=== PATIENT | male | born 1950 | race Caucasian/White ===

== ENCOUNTER 2017-08-16 09:51 | Outpatient (CLI) | payer MEDICARE ==
[~2017-08-16] VITALS: Ht 175.3 cm; Wt 99.8 kg
[2017-08-16 10:18] VITALS: BP 135/61
[2017-08-16 11:04] LABS: BASOPHILS % (AUTO) 0 % (0-10); EOSINOPHILS # (AUTO) 0.1 10^3/uL (0.0-0.3); EOSINOPHILS % (AUTO) 2 % (0-10); HEMATOCRIT 35 % (40-54); HEMOGLOBIN 11.8 G/DL (13.3-17.7); LYMPHOCYTES # (AUTO) 1.7 X 10^3 (1.0-4.0); LYMPHOCYTES % (AUTO) 28 % (12-44); MEAN CORPUSCULAR HEMOGLOBIN 34 PG (25-34); MEAN CORPUSCULAR HGB CONC 34 G/DL (32-36); MEAN CORPUSCULAR VOLUME 102 FL (80-99); MEAN PLATELET VOLUME 11.4 FL (7.4-10.4); MONOCYTES # (AUTO) 0.6 X 10^3 (0.0-1.0); MONOCYTES % (AUTO) 10 % (0-12); NEUTROPHILS # (AUTO) 3.5 X 10^3 (1.8-7.8); NEUTROPHILS % (AUTO) 59 % (42-75); PLATELET COUNT 172 10^3/uL (130-400); RED BLOOD COUNT 3.45 10^6/uL (4.35-5.85); WHITE BLOOD COUNT 5.9 10^3/uL (4.3-11.0)
[2017-08-16] MEDS ORDERED: OMEG-160 PO (11:04)
[2017-08-16] MEDS ORDERED: ATOR80TA76 PO (11:04)
[2017-08-16] MEDS ORDERED: FERR324T4 PO (11:04)
[2017-08-16] MEDS ORDERED: DOXA8TAB73 PO (11:04)
[2017-08-16] MEDS ORDERED: APIX5TAB PO (11:04)
[2017-08-16] MEDS ORDERED: CARV6.25 PO (11:04)
[2017-08-16] MEDS ORDERED: SPIR50TA2 PO (11:04)
[2017-08-16] MEDS ORDERED: INSU100V5 SQ (11:04)
[2017-08-16] MEDS ORDERED: FENO160T12 PO (11:04)
[2017-08-16] MEDS ORDERED: ASPI-586 PO (11:04)
[2017-08-16] MEDS ORDERED: EZET10TA5 PO (11:04)
[2017-08-16] MEDS ORDERED: PANT40TA2 PO (11:04)
[2017-08-16] MEDS ORDERED: NITR0.4T39 SL (11:04)
[2017-08-16] MEDS ORDERED: MULT-1029 PO (11:04)
[2017-08-16] MEDS ORDERED: CHOL20003 PO (11:04)
[2017-08-16] MEDS ORDERED: PAMI30VI8 SQ (11:04)
[2017-08-16] MEDS ORDERED: ISOS120T6 PO (11:04)
[2017-08-16] MEDS ORDERED: FURO-124 PO (11:04)
[2017-08-16 11:18] LABS: CALCIUM 8.6 MG/DL (8.5-10.1); CREATININE SERUM 2.48 MG/DL (0.60-1.30); POTASSIUM 4.5 MMOL/L (3.6-5.0)
== END 2017-08-16 12:18 | disposition home or self-care (01) ==
LOC: PREOP 09:51
PROVIDERS: ATTEND Orthopaedic Surgery Orthopaedic Surgery of the Spine
DX: Z01.812 Encounter for preprocedural laboratory examination (principal); Z11.2 Encounter for screening for other bacterial diseases; M48.061 Spinal stenosis, lumbar region without neurogenic claudication
CPT/HCPCS: 36415; 80048; 85025; 86850; 86900; 86901; 87081; 93005

== ENCOUNTER 2017-08-28 10:52 | Inpatient (IN) | payer MEDICARE ==
[~2017-08-28] VITALS: Ht 175.3 cm; Wt 98.6 kg
[~2017-08-28 10:52] MED LIST: APIX5TAB PO; ASPI-586 PO; ATOR80TA76 PO; CARV6.25 PO; CHOL20003 PO; DOXA8TAB73 PO; EZET10TA5 PO; FENO160T12 PO; FERR324T4 PO; FURO-124 PO; INSU100V5 SQ; ISOS120T6 PO; MULT-1029 PO; NITR0.4T39 SL; OMEG-160 PO; PAMI30VI8 SQ; PANT40TA2 PO; SPIR50TA4 PO
[2017-08-28 12:40] VITALS: BP 147/76
--- NOTE | 2017-08-28 13:32 | Physical Therapy Evaluation ---
PT Evaluation-General Medical Diagnosis Admission Date 08/28/17 Medical Diagnosis: lumbar stenosis with claudication Onset Date: Aug 28, 2017 Therapy Diagnosis Therapy Diagnosis: weakness; abn gait Height/Weight Height (Feet): 5 Height (Inches): 9.00 Weight (Pounds): 217 Weight (Ounces): 5.0 Precautions Precautions/Isolations: Standard Precautions Back brace on when up. Referral Physician: Ramiro Reason for Referral: Evaluation/Treatment Medical History Pertinent Medical History: Atrial Fib, Arthritis, CABG, CVA (with L sided weakness), DM, GERD, HTN, Renal Insufficiency Additional Medical History chronic back pain Current History Elective back surgery L3-5 TLIF, PSDF Reviewed History: Yes Social History Home: Single Level Current Living Status: Spouse Entry Into Home: Stairs With Railing PT Steps Inside Home: 0 Prior/Core FIM Prior Level of Function Functional [place] Measure 0=Not Assessed/NA 4=Minimal Assistance 1=Total Assistance 5=Supervision or Setup 2=Maximal Assistance 6=Modified [place] 3=Moderate Assistance 7=Complete [place] Bed Mobility: 7 Transfers (B,C,W/C) (FIM): 7 Gait: 7 Indep with mobility and self care. Community ambulator PT Evaluation-Current Subjective Agreeable to PT. No particular complaints. Pain Numeric Pain Scale: 3 Location: Posterior Location Body Site: Back (surgical site) Pain Description: Ache Pt/Family Goals Return home with his when able. Objective Patient Orientation: Person, Place, Time, Situation Problem Solving: Good ROM/Strength ROM Lower Extremities WFL Strenght Lower Extremities grossly 4-/5 throughout Integumentary/Posture Integumentary Refer to nursing notes. Bowel Incontinence: No Bladder Incontinence: No Posture normal and symmetrical Neuromuscular (Tone, Coordination, Reflexes) Functional and intact Sensory Vision: Functional Hearing: Functional Hand Dominance: Right Sensation Right Lower Extremit: Intact Sensation Left Lower Extremity: Intact Transfers Functional [place] Measure 0=Not Assessed/NA 4=Minimal Assistance 1=Total Assistance 5=Supervision or Setup 2=Maximal Assistance 6=Modified [place] 3=Moderate Assistance 7=Complete IndependenceIRFPAI Quality Coding Scale 6 Independent with activity with or without an assistive device 5 Patient requires set up or clean up by helper. Patient completes activity by themselves 4 Supervision or touching assist (CGA). [place] provide cues , steadying assist 3 The helper provides less than half the effort to complete the activity 2 The helper provides more than half the effort to complete the activity 1 Dependent. The helper does all the effort to complete an activity 7 Patient refused to complete or attempt activity 9 The patient did not perform the activity before the current illness or injury 88 Not attempted due to Medical conditions or safety concerns Transfers (B, C, W/C) (FIM): 3 Roll Left to Right (QC): 4 Supine to/from Sit: 3 (mod assist to lift his trunk; he used bedrail and HOB slightly elevated. ) Sit to/from Stand: 4 (CGa for safety with cues for hand placement) Sit to Lying (QC): 3 Lying to Sitting/Side of Bed(Q: 3 Sit to Stand (QC): 4 Chair/Ngw-yf-Qoqlk Xfer(QC): 4 Car Transfer (QC): 4 Gait Does the Patient Walk?: Yes Mode of Locomotion: Walk Anticipated Mode of Locomotion: Walk Gait (FIM): 2 Distance (FIM): 0=133-73 ft Walk 10 feet (QC): 4 Walk 50 ft with 2 Turns(QC): 4 Walk 150 ft (QC): 88 Walking 10ft/uneven surface-QC: 4 Distance: 100 ft x 2 Gait Level of Assist: 4 (CGA for safety) Gait Assistive Device: FWW Comments/Gait Description Initially, pt walks with short choppy steps but as he gets going his stride normalizes. His speed is slow but steady and not noted LOB episodes. Wheelchair Training Does the Pt Use a Wheelchair?: No Stairs Stairs (FIM): 2 #of Steps: 1 Level of Assist: 4 1 Step (curb) (QC): 4 4 Steps (QC): 88 Assistive Device: Walker 12 Steps (QC): 88 Balance Sitting Static: Good Sitting Dynamic: Good Standing Static: Fair Standing Dynamic: Fair Picking up an Object (QC): 88 (not indicated due to recent back surgery) Assessment/Needs Post back surgery with fusion. He has limited functional mobility and this time and has difficulty with transfers and gait. He will benefit from skilled PT to address his functional strength to progress his ability to transfer and ambulate at a mod indep level. He has limited functional activity tolerance as well. He is a good candidate for short term aggressive therapy to allow him to return home as before with his . Rehab Potential: Good PT Short Term Goals Short Term Goals Time Frame: Sep 01, 2017 Transfers (B,C,W/C) (FIM): 5 Gait (FIM): 5 PT Senior Care Goals Hotel Maintenance Technician Goals PT Hotel Maintenance Technician Goals Time Frame: Sep 06, 2017 Transfers (B,C,W/C) (FIM): 6 Sit to Lying (QC): 6 Lying-Sitting on Side/Bed(QC): 6 Sit to Stand (QC): 6 Roll Left to Right (QC): 6 Chair/Qmf-ru-Rmlbs Xfer(QC): 6 Car Transfer (QC): 6 Does the Patient Walk: Yes Gait (FIM): 6 Gait distance (FIM): 3=150 ft Walk 10 feet (QC): 6 Walk 10ft-Uneven Surface(QC): 6 Walk 50ft with 2 Turns (QC): 6 Walk 150 ft (QC): 6 Gait Assistive Device: FWW Does the Pt use WC or Scooter?: No Stairs (FIM): 5 # of Steps: 4 1 Step (curb) (QC): 6 4 Steps (QC): 6 12 Steps (QC): 88 Picking up an Object (QC): 88 All goals are set to allow pt to return home and care for himself at a mod indep level. PT Plan Problem List Problem List: Activity Tolerance, Functional Strength, Safety, Balance, Gait, Transfer, Bed Mobility Treatment/Plan Treatment Plan: Continue Plan of Care Treatment Plan: Bed Mobility, Education, Functional Activity Narciso, Functional Strength, Group Therapy, Gait, Safety, Therapeutic Exercise, Transfers Treatment Duration: Sep 06, 2017 Frequency: At least 5 of 7 days/Wk (IRF) Estimated Hrs Per Day: 1.5 hours per day Patient and/or Family Agrees t: Yes Safety Risks/Education Patient Education: Gait Training, Transfer Techniques, Safety Issues Teaching Recipient: Patient Teaching Methods: Discussion Response to Teaching: Reinforcement Needed Time/GCodes Time In: 1215 Time Out: 1235 Total Billed Treatment Time: 20 Total Billed Treatment visit EVM 20 BRAYAN STAFFORD PT Aug 28, 2017 13:32
--- NOTE | 2017-08-28 13:59 | Occupational Therapy Eval ---
OT Evaluation-General/PLF Medical Diagnosis Admission Date Medical Diagnosis: lumbar stenosis with claudication Onset Date: Aug 28, 2017 Therapy Diagnosis Therapy Diagnosis: decr self care, weakness, decr funct mobility, decr act betty Height/Weight Height (Feet): 5 Height (Inches): 9.00 Weight (Pounds): 217 Weight (Ounces): 5.0 Precautions Precautions/Isolations: Standard Precautions Weight Bear Status TLSO when up Referral Physician: Ramiro Referral Reason: Evaluation/Treatment Medical History Pertinent Medical History: Atrial Fib, Arthritis, CABG, CAD, COPD, CVA (with L sided weakness, 11 years ago), DM, GERD, HTN, Renal Insufficiency Additional Medical History Anemia. Sleep apnea with CPAP. GI bleed. Chronic back pain Current History L3-5 TLIF/PSF, with TLSO Reviewed History: Yes Social History Home: Single Level Current Living Status: Spouse Entry Into Home: Stairs With Railing Steps Into Home: 3 Steps Inside Home: 0 ADL-Prior Level of Function ADL PLOF Comments Pt reported that he has been able to manage his basic self care needs prior to surgery. 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 Pain reported but not rated or described. Appearance Alert, cooperative Mental Status/Objective Patient Orientation: Person, Place, Time, Situation Attachments: IV, Telemetry, Other-See Comments (TLSO) Current Glasses/Contacts: Yes Hearing Aids: No Dentures/Partials: No Hand Dominance: Right Upper Extremity ROM Grossly WFL bilat except decreased supination and wrist extension L UE (from old CVA) Upper Extremity Coordination L UE Upper Extremity Sensation L UE tingly Upper Extremity Strength R UE 4/5, L UE 4-/5 ADL-Treatment ADL-Current Pt reported that he had already had a shower this morning. Functional [place] Measure 0=Not Assessed/NA 4=Minimal Assistance 1=Total Assistance 5=Supervision or Setup 2=Maximal Assistance 6=Modified [place] 3=Moderate Assistance 7=Complete IndependenceIRFPAI Quality Coding Scale 6 Independent with activity with or without an assistive device 5 Patient requires set up or clean up by helper. Patient completes activity by themselves 4 Supervision or touching assist (CGA). [place] provide cues , steadying assist 3 The helper provides less than half the effort to complete the activity 2 The helper provides more than half the effort to complete the activity 1 Dependent. The helper does all the effort to complete an activity 7 Patient refused to complete or attempt activity 9 The patient did not perform the activity before the current illness or injury 88 Not attempted due to Medical conditions or safety concerns Eating (FIM): 5 (setup) Eating (QC): 5 Upper Body Dressing (FIM): 5 (Unable to don TLSO himself. Does not do buttons) Upper Body Dressing (QC): 5 Lower Body Dressing (FIM): 3 (Help to get pants on over feet but he can pull them up. Unable to do slipper socks. CGA when standing to pull pants up. Pt educ modified techniques) Lower Body Dressing (QC): 3 On/Off Footwear (QC): 1 Education OT Patient Education: Modified ADL techniques, Purpose of tx/functional activities, Rehab process, Transfer techniques Teaching Recipient: Patient, Family Teaching Methods: Demonstration, Discussion Response to Teaching: Verbalize Understanding, Return Demonstration OT Short Term Goals Short Term Goals Time Frame: Sep 04, 2017 Lower Body Dressing(FIM): 5 Toilet/Commode Transfer(FIM): 5 Additional Short Term Goals: 1-Demonstrate ADL Tasks, 2-Verbalize Understanding , 3-ImproveStrength/Narciso 1=Demonstrate adherence to instructed precautions during ADL tasks. 2=Patient will verbalize/demonstrate understanding of assistive devices/ modifications for ADL. 3=Patient will improve strength/tolerance for activity to enable patient to perform ADL's. OT Aba Tutor Goals Aba Tutor Goals Time Frame: Sep 08, 2017 Eating (FIM): 7 Eating (QC): 6 Groomin Oral Hygiene (QC): 6 Bathing(FIM): 6 Shower/Bathe Self (QC): 6 Upper Body Dressing(FIM): 6 Upper Body Dressing (QC): 6 Lower Body Dressing(FIM): 6 Lower Body Dressing (QC): 6 On/Off Footwear (QC): 6 Toileting(FIM): 6 Toileting Hygiene (QC): 6 Toilet/Commode Transfer(FIM): 6 Toilet/Commode Transfer (QC): 6 Shower Transfer(FIM): 6 Additional Goals: 1-Demonstrate ADL Tasks, 2-Verbalize Understanding, 3- ImproveStrength/Narciso 1=Demonstrate adherence to instructed precautions during ADL tasks. 2=Patient will verbalize/demonstrate understanding of assistive devices/ modifications for ADL. 3=Patient will improve strength/tolerance for activity to enable patient to perform ADL's. OT Education/Plan Problem List/Assessment Assessment: 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 ) Pt would benefit from skilled OT to increase his independence in basic self care to allow him to safely return home with family Discharge Recommendations Plan/Recommendations: Continue POC Treatment Plan/Plan of Care Treatment,Training & Education: Yes Patient would benefit from OT for education, treatment and training to promote independence in ADL's, mobility, safety and/or upper extremity function for ADL' s. Plan of Care: ADL Retraining, Functional Mobility, Group Exercise/Act as Ind ( education, exercise, funct activity, activity tolerance, socialization), UE Funct Exercise/Act, UE Neuromus Re-Ed/Coord Treatment Duration: Sep 08, 2017 Frequency: At least 5 of 7 days/Wk (IRF) Estimated Hrs Per Day: 1.5 hours per day Agreement: Yes Rehab Potential: Good Time/GCodes Start Time: 12:35 Stop Time: 13:00 Total Time Billed (hr/min): 25 Billed Treatment Time visit, 15 minutes evaluation moderate intensity, 10 minutes ADL GRANT FARIAS OT Aug 28, 2017 13:59
[2017-08-28] MEDS ORDERED: BACLOFEN 10 MG (LIORESAL) TAB PO PRN (14:30)
[2017-08-28] MEDS ORDERED: morphine INJ 10 MG/ML 1ML (SYR OR VIAL) IVP PRN (14:30)
[2017-08-28] MEDS ORDERED: HYDROcodone/APAP 5 MG/325 MG (LORTAB) TAB PO PRN (14:30)
[2017-08-28] MEDS ORDERED: BISACODYL 5 MG (DULCOLAX) TABLET PO PRN (14:30)
[2017-08-28] MEDS ORDERED: ACETAMINOPHEN 325 MG TABLET PO PRN (14:30)
[2017-08-28] MEDS ORDERED: ONDANSETRON 4 MG/2 ML (SDV) Z0FRAN IV PRN (14:30)
[2017-08-28] MEDS ORDERED: LACTATED RINGERS 1,000 ML IV SCH (14:30)
[2017-08-28] MEDS ORDERED: NITROGLYCERIN 2% OINT 1 GM UNIT DOSE PACKET TOP PRN (14:30)
[2017-08-28] MEDS ORDERED: NITROGLYCERIN 0.4 MG SL TABS BTL 25'S SL PRN (14:30)
[2017-08-28] MEDS ORDERED: APIX5TAB PO (14:32)
--- NOTE | 2017-08-28 14:46 | Physical Therapy Daily Note ---
PT Daily Note-Current Subjective AGreeable to PT. Transfers Functional [place] Measure 0=Not Assessed/NA 4=Minimal Assistance 1=Total Assistance 5=Supervision or Setup 2=Maximal Assistance 6=Modified [place] 3=Moderate Assistance 7=Complete IndependenceIRFPAI Quality Coding Scale 6 Independent with activity with or without an assistive device 5 Patient requires set up or clean up by helper. Patient completes activity by themselves 4 Supervision or touching assist (CGA). [place] provide cues , steadying assist 3 The helper provides less than half the effort to complete the activity 2 The helper provides more than half the effort to complete the activity 1 Dependent. The helper does all the effort to complete an activity 7 Patient refused to complete or attempt activity 9 The patient did not perform the activity before the current illness or injury 88 Not attempted due to Medical conditions or safety concerns Car Transfer (QC): 4 Weight Bearing Right Lower Extremity: Right Weight Bearing/Tolerated Left Lower Extremity: Left Weight Bearing/Tolerated Treatments Pt practiced car transfer; required min assist with skilled cues to complete. Gait x 50 ft and 125 ft with FWW with CGA for safety with skilled cues for safety and sequencing. Pt transferred on to the toilet with CGA and did require assist to pull his pants down. Pt on toilet with call light in reach post treatment. Assessment Current Status: Good Progress Gait is improving with repetition. PT Short Term Goals Short Term Goals Time Frame: Sep 01, 2017 Gait (FIM): 5 PT Supervisor Metal Furniture Fabrication Goals Nursing Home Goals PT Supervisor Metal Furniture Fabrication Goals Time Frame: Sep 06, 2017 Transfers (B,C,W/C) (FIM): 6 Sit to Lying (QC): 6 Lying-Sitting on Side/Bed(QC): 6 Sit to Stand (QC): 6 Roll Left to Right (QC): 6 Chair/Wcr-rm-Jebys Xfer(QC): 6 Car Transfer (QC): 6 Does the Patient Walk: Yes Gait (FIM): 6 Gait distance (FIM): 3=150 ft Walk 10 feet (QC): 6 Walk 10ft-Uneven Surface(QC): 6 Walk 50ft with 2 Turns (QC): 6 Walk 150 ft (QC): 6 Gait Assistive Device: FWW Does the Pt use WC or Scooter?: No Stairs (FIM): 5 # of Steps: 4 1 Step (curb) (QC): 6 4 Steps (QC): 6 12 Steps (QC): 88 Picking up an Object (QC): 88 PT Plan Problem List Problem List: Activity Tolerance, Functional Strength, Safety Treatment/Plan Treatment Plan: Continue Plan of Care Treatment Plan: Bed Mobility, Education, Functional Activity Narciso, Functional Strength, Group Therapy, Gait, Safety, Therapeutic Exercise, Transfers Treatment Duration: Sep 06, 2017 Frequency: At least 5 of 7 days/Wk (IRF) Estimated Hrs Per Day: 1.5 hours per day Patient and/or Family Agrees t: Yes Safety Risks/Education Patient Education: Transfer Techniques Teaching Recipient: Patient Teaching Methods: Demonstration, Discussion Response to Teaching: Reinforcement Needed Time/GCodes Time In: 1405 Time Out: 1415 Total Billed Treatment Time: 10 Total Billed Treatment visit GT 10 BRAYAN STAFFORD PT Aug 28, 2017 14:46
--- NOTE | 2017-08-28 14:55 | Therapy Group Daily Note ---
Therapy Daily Group Note Patient Education Topic Other List Below (orientation to rehab practices and expectations, importance of activity and exercise) Exercises LE Seated Exercise, UE Exercise Other/Notes Pt. participated in group PT OT session this date. Pt ambulated with FWW and assist to group. Pt. was pleasant , made conversation and participated in exercises etc. Pt. with therapist after group for further therapies. Start Time: 13:00 Stop Time: 14:05 Total Billed Treatment Time: 65 Total Billed Treatment 1,GRP [facility] INSTITUTIONAL RESEARCH COORDINATOR Aug 28, 2017 14:55
--- NOTE | 2017-08-28 15:09 | ST Cognitive Linguistic Eval ---
Speech Evaluation-General Medical Diagnosis lumbar stenosis with claudication Onset Date: Aug 28, 2017 Therapy Diagnosis Therapy Diagnosis: Cognitive Linguistic Skills WNL Precautions Precautions/Isolations: Standard Precautions Referral Referring Physician: Dr. Marco A Rubio Reason for Referral: Evaluation/Treatment Cognitive Evaluation Medical History Pertinent Medical History: Atrial Fib, Arthritis, CABG, CAD, COPD, CVA (with L sided weakness, 11 years ago), DM, GERD, HTN, Renal Insufficiency Reviewed History: Yes Social History Current Living Status: Spouse Speech PLF-Current Status Prior Level of Function The patient denied prior challenges with speech, language, or cognition. Subjective The patient was seated upright in bed upon entrance. The patient greeted the clinician and was agreeable to participation in the cognitive evaluation. Language Eval: Auditory Comprehends Simple Yes/No Ques: Functional Indent/Objects [place]: Functional Ident/Pics in [place]: Functional Follows 1-Step Commands: Functional Follows Complex Directions: Functional Follows General Conversations: Functional Language Eval: Verbal Language Completes Spontaneous Greeting: Functional Produces Auto, Serial Info: Functional Imitates Simple Words/Phrases: Functional Word Finding: Functional Requests Basic Needs: Functional States Basic Personal Info: Functional Expresses Complex Ideas: Functional Cognitive Patient Orientation The patient was independently oriented to self, location, month, day of week, and year. Objective Cognitive Domain Attention: WNL Memory: WNL Problem Solving: Functional Objective Impression The patient demonstrated cognitive linguistic skills within normal limits. Communication/Social Cognition Comprehension: 7 Expression: 7 Social Interaction: 6 Problem Solvin Memory: 7 Speech Patient Assess Expression of Ideas/Wants: Expression (4) Understanding Verbal Content: Understands (4) Brief Interview-Mental Status: Yes Repetition of Three Words: Three (3) Temporal Orientation: Year: Correct (3) Temporal Orientation: Month: Accurate within 5 days(2) Temporal Orientation: Day: Correct (1) Recall : Wear to say "Sock": No, could not recall (0) Recall : Color: Yes, no cue required (2) Recall : Bed: Yes, no cue required (2) Speech-Plan Treatment Plan Speech Therapy Treatment Plan: Discontinue ST No ST warranted. Frequency: Modified Program (IRF) (No ST warranted.) Estimated Hrs Per Day: Other (No ST warranted.) Rehab Potential: Good Safety Risks/Education Teaching Recipient: Patient Teaching Methods: Discussion Response to Teaching: Verbalize Understanding Education Topics Provided: Results, Recommendations, Plan of Care Time Speech Therapy Time In: 14:25 Speech Therapy Time Out: 14:40 Total Billed Time: 15 Billed Treatment Time 1, ANN MARIE CHANG Aug 28, 2017 15:09
--- NOTE | 2017-08-28 15:20 | Occupational Ther Daily Note ---
OT Current Status-Daily Note Subjective Pt seen in room, up in bed, agreeable to OT. No pain mentioned. Appearance Alert, cooperative Mental Status/Objective Functional [place] Measure 0=Not Assessed/NA 4=Minimal Assistance 1=Total Assistance 5=Supervision or Setup 2=Maximal Assistance 6=Modified [place] 3=Moderate Assistance 7=Complete [place] ADL-Treatment Pt was able to get up out of bed log rolling with min assistance to push up. TLSO applied. Pt sit to stand with CGA, cues for hand placement. Pt starter to walk to the gym and realized he had been incontinent of urine ([place] removed this morning). He walked about 100' with CGA and FWW and circled back to his room. He got on and off tall toilet with CGA, cues to use grab bar on his R side. He needed a little help to change pants and get them on/off L hip but was able to wipe himself. He stopped at the sink to wash his hands with CGA, FWW and walked back to bed CGA. FWW. He needed mod assist to get legs into bed and help to take brace off. pt left up in bed, all needs met. Functional [place] Measure 0=Not Assessed/NA 4=Minimal Assistance 1=Total Assistance 5=Supervision or Setup 2=Maximal Assistance 6=Modified [place] 3=Moderate Assistance 7=Complete IndependenceIRFPAI Quality Coding Scale 6 Independent with activity with or without an assistive device 5 Patient requires set up or clean up by helper. Patient completes activity by themselves 4 Supervision or touching assist (CGA). [place] provide cues , steadying assist 3 The helper provides less than half the effort to complete the activity 2 The helper provides more than half the effort to complete the activity 1 Dependent. The helper does all the effort to complete an activity 7 Patient refused to complete or attempt activity 9 The patient did not perform the activity before the current illness or injury 88 Not attempted due to Medical conditions or safety concerns Grooming (FIM): 4 (CGA, FWW at sink to wash hands) Oral Hygiene (QC): 4 Toileting (FIM): 2 (Help to get pants up and down over L hip but able to wipe. Residual from old CVA with L UE weakness. Tall toilet, grab bar on R, FWW) Toileting Hygiene (QC): 2 Toilet/Commode Transfer (FIM): 4 (CGA getting on and off tall toilet, grab bar on R, FWW) Toilet Transfer (QC): 4 Education OT Patient Education: Modified ADL techniques, Progress toward Goal/Update tx plan, Purpose of tx/functional activities, Transfer techniques Teaching Recipient: Patient Teaching Methods: Demonstration, Discussion Response to Teaching: Verbalize Understanding, Return Demonstration, Reinforcement Needed OT Short Term Goals Short Term Goals Time Frame: Sep 04, 2017 Lower Body Dressing(FIM): 5 Toilet/Commode Transfer(FIM): 5 Additional Short Term Goals: 1-Demonstrate ADL Tasks, 2-Verbalize Understanding , 3-ImproveStrength/Narciso 1=Demonstrate adherence to instructed precautions during ADL tasks. 2=Patient will verbalize/demonstrate understanding of assistive devices/ modifications for ADL. 3=Patient will improve strength/tolerance for activity to enable patient to perform ADL's. OT Distributed Energy Systems Consultant Goals Distributed Energy Systems Consultant Goals Time Frame: Sep 08, 2017 Eating (FIM): 7 Eating (QC): 6 Groomin Oral Hygiene (QC): 6 Bathing(FIM): 6 Shower/Bathe Self (QC): 6 Upper Body Dressing(FIM): 6 Upper Body Dressing (QC): 6 Lower Body Dressing(FIM): 6 Lower Body Dressing (QC): 6 On/Off Footwear (QC): 6 Toileting(FIM): 6 Toileting Hygiene (QC): 6 Toilet/Commode Transfer(FIM): 6 Toilet/Commode Transfer (QC): 6 Shower Transfer(FIM): 6 Additional Goals: 1-Demonstrate ADL Tasks, 2-Verbalize Understanding, 3- ImproveStrength/Narciso 1=Demonstrate adherence to instructed precautions during ADL tasks. 2=Patient will verbalize/demonstrate understanding of assistive devices/ modifications for ADL. 3=Patient will improve strength/tolerance for activity to enable patient to perform ADL's. OT Education/Plan Problem List/Assessment Pt would benefit from skilled OT to increase his independence in basic self care to allow him to safely return home with family Discharge Recommendations Plan/Recommendations: Continue POC Treatment Plan/Plan of Care Patient would benefit from OT for education, treatment and training to promote independence in ADL's, mobility, safety and/or upper extremity function for ADL' s. Plan of Care: ADL Retraining, Functional Mobility, Group Exercise/Act as Ind ( education, exercise, funct activity, activity tolerance, socialization), UE Funct Exercise/Act, UE Neuromus Re-Ed/Coord Treatment Duration: Sep 08, 2017 Frequency: At least 5 of 7 days/Wk (IRF) Estimated Hrs Per Day: 1.5 hours per day Agreement: Yes Rehab Potential: Good Time/GCodes Start Time: 14:40 Stop Time: 15:10 Total Time Billed (hr/min): 30 Billed Treatment Time visit, 30 minutes ADL GRANT FARIAS OT Aug 28, 2017 15:20
[2017-08-28] MEDS ORDERED: RT-ALBUTEROL SULF 2.5 MG/3 ML PRE-MIX VIAL ONE (15:37)
--- NOTE | 2017-08-28 15:38 | Physical Therapy Daily Note ---
PT Daily Note-Current Subjective Agrees to Rx. Prefers to stay in bed for exercises. Fatigued Pain Numeric Pain Scale: 5-Moderate Pain Location: Medial Location Body Site: Back Pain Description: Ache Mental Status Patient Orientation: Normal For Age Attachments: IV Transfers Functional [place] Measure 0=Not Assessed/NA 4=Minimal Assistance 1=Total Assistance 5=Supervision or Setup 2=Maximal Assistance 6=Modified [place] 3=Moderate Assistance 7=Complete IndependenceIRFPAI Quality Coding Scale 6 Independent with activity with or without an assistive device 5 Patient requires set up or clean up by helper. Patient completes activity by themselves 4 Supervision or touching assist (CGA). [place] provide cues , steadying assist 3 The helper provides less than half the effort to complete the activity 2 The helper provides more than half the effort to complete the activity 1 Dependent. The helper does all the effort to complete an activity 7 Patient refused to complete or attempt activity 9 The patient did not perform the activity before the current illness or injury 88 Not attempted due to Medical conditions or safety concerns practiced pushing self up in bed, required min assist Weight Bearing Right Lower Extremity: Right Weight Bearing/Tolerated Left Lower Extremity: Left Weight Bearing/Tolerated Exercises Supine Ex: Ankle pumps, Quad Set, Rolling, Glut sets, Heel Slides, Short Arc Quads, Scooting, Hip abd/add Supine Reps: 10 (x2) Assessment Current Status: Good Progress PT Short Term Goals Short Term Goals Time Frame: Sep 01, 2017 Gait (FIM): 5 PT Retirement Goals Retirement Goals PT Retirement Goals Time Frame: Sep 06, 2017 Transfers (B,C,W/C) (FIM): 6 Sit to Lying (QC): 6 Lying-Sitting on Side/Bed(QC): 6 Sit to Stand (QC): 6 Roll Left to Right (QC): 6 Chair/[id number]-[id number] Xfer(QC): 6 Car Transfer (QC): 6 Does the Patient Walk: Yes Gait (FIM): 6 Gait distance (FIM): 3=150 ft Walk 10 feet (QC): 6 Walk 10ft-Uneven Surface(QC): 6 Walk 50ft with 2 Turns (QC): 6 Walk 150 ft (QC): 6 Gait Assistive Device: FWW Does the Pt use WC or Scooter?: No Stairs (FIM): 5 # of Steps: 4 1 Step (curb) (QC): 6 4 Steps (QC): 6 12 Steps (QC): 88 Picking up an Object (QC): 88 PT Plan Treatment/Plan Treatment Plan: Continue Plan of Care Treatment Plan: Bed Mobility, Education, Functional Activity Narciso, Functional Strength, Group Therapy, Gait, Safety, Therapeutic Exercise, Transfers Treatment Duration: Sep 06, 2017 Frequency: At least 5 of 7 days/Wk (IRF) Estimated Hrs Per Day: 1.5 hours per day Patient and/or Family Agrees t: Yes Time/GCodes Time In: 1520 Time Out: 1535 Total Billed Treatment Time: 15 Total Billed Treatment 1,EX15m G Codes Necessary: MITCHELL Witt RN ENDOCRINOLOGY Aug 28, 2017 15:38
[2017-08-28] MEDS ORDERED: ARTIFICIAL TEARS OINT (LACRI-LUBE) 3.5 GM TUBE OU SCH (16:00)
[2017-08-28] MEDS: inSUlin ASPART (NovoLOG) 1 UNIT/0.01 ML (CHARGE PER UNIT) SC SCH ×2 (17:16→21:21)
[2017-08-28] MEDS ORDERED: ONDANSETRON 4 MG (ZOFRAN) ORAL DISSOLVE TAB ONE (18:02)
[2017-08-28] MEDS: ONDANSETRON 4 MG (ZOFRAN) ORAL DISSOLVE TAB PO PRN (18:06)
[2017-08-28] MEDS: OMEGA 3 (FISH OIL) 1000 MG CAP PO SCH (18:09)
[2017-08-28 18:15] VITALS: BP 167/75
--- NOTE | 2017-08-28 19:09 | HISTORY AND PHYSICAL ---
DATE OF SERVICE: 08/28/2017 ADMISSION HISTORY AND PHYSICAL CHIEF COMPLAINT: Back pain, difficulty walking. HISTORY OF PRESENT ILLNESS: The patient is a 67-year-old male. DICTATION ENDS HERE Job ID: [id number] DocumentID: [id number] Dictated Date: 08/28/2017 18:47:22 Data Analysis Assistant Date: 08/28/2017 19:09:05 Dictated By: JACQUES GALLO MD
--- NOTE | 2017-08-28 19:42 | HISTORY AND PHYSICAL ---
DATE OF SERVICE: 08/28/2017 ADMISSION HISTORY AND PHYSICAL CHIEF COMPLAINT: Difficulty with walking with associated back pain. HISTORY OF PRESENT ILLNESS: The patient is a 67-year-old male, who is a retired contractor, lives with his in [place], [place], who had progressive back pain associated with lumbar radiculopathy and neurogenic claudication, who is followed on an outpatient basis by Dr. Heredia. After having a conservative treatment with little improvement, he was admitted to [facility] on 08/25/2017, had underwent L3-L4 transforaminal lumbar interbody fusion and posterior spinal fusion, L4-L5 transforaminal lumbar interbody fusion and posterior spinal fusion, L3-L4 and L4-L5 interbody caged instrumentation without interval fixation and L3-L5 posterior segmental pedicle screw instrumentation with autograft for spine surgery, local and Allograft for spine surgery morcellized for treatment of recurrent lumbar stenosis with neural foramen due to disk and osseous structures, neurogenic claudication, lumbar radiculopathy, post-laminectomy syndrome and lumbar degenerative disk disease. Postoperatively, the patient had issues with urinary retention and was followed by Dr. Guallpa and had cystoscopy on 08/28/2017, is now voiding well. He was followed by Dr. Forbes as well for treatment of sepsis with metabolic acidosis, agitation and confusion. All improved. He has CPAP at bedside for his AXEL. He had acute on chronic kidney disease. IV fluids provided with improvement. He had abdominal pain with constipation and is complaining of constipation today. Medications adjusted. The patient was followed by hospitalist service, Dr. Buchanan as well as Dr. Cohn for his coronary artery disease and paroxysmal atrial fibrillation documented on telemetry this hospitalization. Dr. Cohn recommended postop resumption of Eliquis and to consider blood transfusion if H and H drops further. The patient has now been referred to inpatient rehabilitation unit for ongoing therapies prior to discharge home with spouse. He currently requires assistance for his ADLs and mobility skills.He is min assist for transfers and gait with FWW.He is mod assist for Lower body dressing and setup for upper body dressing. PAST MEDICAL HISTORY: AXEL, BPH, chronic anemia probably due to chronic kidney disease, type 2 diabetes mellitus, paroxysmal atrial fibrillation, coronary artery disease with history of CABG in the late at [facility]. He has had cardiac stents in the past as well with Dr. Dos Santos approximately three years ago. PAST SURGICAL HISTORY: As per above. He also has had prior lumbar spine surgery with Dr. Polo at [facility] and prior cervical spine surgery with Dr. Heredia. ALLERGIES: LEVAQUIN. FAMILY HISTORY: Noncontributory. SOCIAL HISTORY: Essentially as per above. REVIEW OF SYSTEMS: Ten point review of systems significant for irregular heartbeat, constipation, back pain. MEDICATIONS: 1. Furosemide 40 mg p.o. daily. 2. Spironolactone 50 mg p.o. daily. 3. Feosol 325 mg p.o. daily. 4. Multivitamins with minerals one tablet p.o. daily. 5. Protonix 40 mg p.o. daily. 6. Vitamin D3 2000 units p.o. daily. 7. Imdur 120 mg p.o. daily. 8. Lipitor 80 mg p.o. at bedtime. 9. Coreg 6.25 mg p.o. b.i.d. 10. Cardura 8 mg p.o. at bedtime. 11. Detemir insulin 30 units subQ b.i.d. 12. Zetia 10 mg p.o. at bedtime. 13. Lofibra 134 mg p.o. at bedtime. 14. Zofran 4 mg p.o. q.6 hours p.r.n. nausea, vomiting. 15. Fish oil 1000 mg p.o. b.i.d. with meals. 16. NovoLog insulin sliding scale regimen A. 17. Proventil respiratory treatments q.6 hours. 18. Nitroglycerin 0.4 mg sublingual p.r.n. chest pain. PHYSICAL EXAMINATION: GENERAL: Significant for a somewhat obese male sitting up at edge of bed with incision site being checked by nursing and in no acute distress. VITAL SIGNS: He is afebrile, pulse is 51, respirations 20, blood pressure 167/75, O2 sat 96% on room air. HEENT: Vision, speech, hearing grossly intact. No oral lesion is noted. NECK: Supple without mass. HEART: Regular rhythm. CHEST: Clear. ABDOMEN: Distended, soft, nontender. Bowel sounds present. EXTREMITIES: Trace edema in both ankles. SKIN: Incision site viewed over the lumbar spine intact. No drainage noted. Steri-Strips in place. MUSCULOSKELETAL: The patient has functional active range of motion in all four extremities. NEUROLOGICAL: Strength is grossly 4-/5 in lower limbs and 4/5 in RU LIMB Left Upper limb 4-/5 as a residual of old stroke. He is reported to be voiding and continent of bowel and bladder but constipated. Sensation is grossly intact to touch. He is right hand dominant. IMPRESSION: 1. Ambulatory dysfunction secondary to recurrent lumbar stenosis with associated neurogenic claudication, lumbar radiculopathy, post-laminectomy syndrome and lumbar degenerative disk disease, status post procedures as outlined above, improving. 2. Obstructive sleep apnea, on CPAP. 3. Postop anemia, on replacement. 4. Type 2 diabetes mellitus, on medication. 5. Postop urinary retention, improved, status post cysto. 6. Paroxysmal atrial fibrillation, controlled with medication. 7. Chronic kidney disease, stage IV. 8. Hyperlipidemia. 9. Coronary artery disease with history of coronary artery bypass graft and stents. 10. Postop constipation PLAN: The patient will have a comprehensive program of inpatient rehabilitation with goal of maximizing level of functional independence prior to discharge home with spouse with home health care. The patient will have PT and OT 90 minutes per day each discipline, 5 days a week for 14 days with the above goals in mind. Please see post-admission physician evaluation, which is a separate document for details of plan of care. Speech therapy to do cognitive assessment and treat as indicated. Rehabilitation nursing to assist with bowel, bladder, skin, wound care, medication administration and pain management. web services manager to assist with discharge planning and community reentry. Follow up with hospitalist service as well as Ortho Spine, Cardiology and Urology as per the schedule. ESTIMATED LENGTH OF STAY: 14 days. PROGNOSIS: Rehab prognosis appears good for goal of discharging home with spouse, modified independent to supervision for ADLs and mobility skills. DIET: Carb consistent. CODE STATUS: Full code. Job ID: [id number] DocumentID: [id number] Dictated Date: 08/28/2017 18:59:47 Dumb Waiter Operator Date: 08/28/2017 19:41:38 Dictated By: JACQUES GALLO MD [facility]
[2017-08-28] MEDS: doxAzosin 4 MG (CARDURA) TAB PO SCH (21:00)
[2017-08-28] MEDS: inSUlin DETERMIR 1 UNIT/0.01 ML (LEVEMIR) CHARGE PER UNIT SQ SCH (21:00)
[2017-08-28] MEDS: ATORVASTATIN 80 MG (LIPITOR) TABLET PO SCH (21:00)
[2017-08-28] MEDS ORDERED: SENNA W/DOCUSATE (SENOKOT S) TABLET PO SCH (21:00)
[2017-08-28] MEDS ORDERED: risperiDONE 0.25 MG (RisperDAL) TAB PO SCH (21:00)
[2017-08-28] MEDS: CARVEDILOL 6.25 MG (COREG) TAB PO SCH (21:00)
[2017-08-28] MEDS: POLYETHYLENE GLYCOL 17 GM (MIRALAX) PACK PO SCH (21:00)
[2017-08-28] MEDS ORDERED: POLYETHYLENE GLYCOL 17 GM (MIRALAX) PACK PO SCH (21:00)
[2017-08-28] MEDS ORDERED: DOCUSATE SODIUM 100 MG (COLACE) CAP PO SCH (21:00)
[2017-08-28] MEDS: eZETimibe 10 MG (ZETIA) TABLET PO SCH (21:00)
[2017-08-28] MEDS: SENNA W/DOCUSATE (SENOKOT S) TABLET PO SCH (21:00)
[2017-08-28] MEDS: FENOFIBRATE 134 MG (LOFIBRA) CAPSULE PO SCH (21:00)
[2017-08-28] MEDS ORDERED: 1/2 NS W/KCL 20 MEQ/L 1,000 ML IV ONE (21:35)
[2017-08-28] MEDS: 1/2 NS W/KCL 20 MEQ/L 1,000 ML IV SCH (22:19)
[2017-08-28] MEDS: RT-ALBUTEROL SULF 2.5 MG/3 ML PRE-MIX VIAL INH SCH (22:56)
[2017-08-29] MEDS: RT-ALBUTEROL SULF 2.5 MG/3 ML PRE-MIX VIAL INH SCH ×4 (01:19→19:00)
[2017-08-29 06:00] VITALS: BP 158/67
[2017-08-29] MEDS: inSUlin ASPART (NovoLOG) 1 UNIT/0.01 ML (CHARGE PER UNIT) SC SCH ×4 (06:44→21:26)
[2017-08-29] MEDS: MULTIVIT W/MINERALS TAB (THERAGRAN M) PO SCH (08:00)
[2017-08-29] MEDS: FERROUS SULF 325 MG (IRON) TAB PO SCH (08:00)
[2017-08-29] MEDS: OMEGA 3 (FISH OIL) 1000 MG CAP PO SCH ×2 (08:00→16:33)
[2017-08-29] MEDS: VITAMIN D3 1,000 UNITS (CHOLECALCIFEROL) TABLET PO SCH (08:00)
[2017-08-29] MEDS: 1/2 NS W/KCL 20 MEQ/L 1,000 ML IV SCH ×2 (08:18→19:34)
[2017-08-29] MEDS: ONDANSETRON 4 MG (ZOFRAN) ORAL DISSOLVE TAB PO PRN ×3 (08:18→21:23)
[2017-08-29] MEDS: inSUlin DETERMIR 1 UNIT/0.01 ML (LEVEMIR) CHARGE PER UNIT SQ SCH ×2 (08:30→21:25)
[2017-08-29] MEDS: SENNA W/DOCUSATE (SENOKOT S) TABLET PO SCH ×2 (09:00→21:24)
[2017-08-29] MEDS ORDERED: ASPIRIN 81 MG CHEW (CHILDREN'S ASA) PO SCH (09:00)
--- NOTE | 2017-08-29 09:24 | Progress Note-Hospitalist ---
Subjective HPI/CC On Admission Date Seen by Provider: Aug 29, 2017 Time Seen by Provider: 09:30 Subjective/Events-last exam Patient overall doing much better Voiding on his own without catheter Appreciate urology management Dr. Rodriguez will stop by and evaluate the ileus since he still feels very bloated Check meds and labs Not eating well so will minimize long-acting insulin for now and maintain sliding scale Will check labs tomorrow Review of Systems General: Fatigue Gastrointestinal: Abdominal Pain Musculoskeletal: back pain Objective Exam Vital Signs Vital Signs Date Time Temp Pulse Resp B/P (MAP) Pulse Ox O2 Delivery O2 Flow Rate FiO2 08/29/17 19:00 94 Room Air 08/29/17 18:00 80 155/67 (96) 08/29/17 16:37 98.0 16 08/29/17 01:22 2.00 Capillary Refill : General Appearance: No Apparent Distress, WD/WN, Chronically ill, Obese Respiratory: Lungs Clear, Normal Breath Sounds Cardiovascular: Regular Rate, Rhythm, No Edema Neurologic/Psychiatric: Alert, Oriented x3, No Motor/Sensory Deficits, Normal Mood/Affect Results/Procedures Lab Patient resulted labs reviewed. Assessment/Plan Assessment and Plan Assess & Plan/Chief Complaint Assessment: Severe debility following lumbar spine surgery due to stenosis Status post urinary retention requiring Swanson catheter administration now discontinued appreciate urology management Postop ileus gradually improving Chronic renal sufficiency usual creatinine is 1.81.9 CAD previous bypass surgery Obstructive sleep apnea Postop anemia Plan: Check labs in a.m. Monitor closely Appreciate urology and general surgery evaluation Continue nebulizer treatments Diagnosis/Problems Diagnosis/Problems (1) STENOSIS Status: Resolved (2) Ileus Status: Acute (3) Urinary retention Status: Resolved (4) Delirium Status: Resolved (5) Volume overload Status: Resolved (6) Corneal abrasion, left Status: Resolved (7) AXEL on CPAP Status: Chronic (8) History of CVA (cerebrovascular accident) Status: Chronic (9) CRI (chronic renal insufficiency) Status: Chronic Qualifiers: Chronic kidney disease stage: stage 3 (moderate) Qualified Codes: N18.3 - Chronic kidney disease, stage 3 (moderate) (10) CAD (coronary artery disease), [place] coronary artery Status: Chronic Qualifiers: [place] vs. 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: with tractor crane operator use Diabetes mellitus complication status: with circulatory complication Diabetes mellitus complication detail: with other circulatory complications Qualified Codes: E11.59 - Type 2 diabetes mellitus with other circulatory complications; Z79.4 - [facility] (current) use of insulin (14) Atrial fibrillation Status: Chronic Qualifiers: Atrial fibrillation type: paroxysmal Qualified Codes: I48.0 - Paroxysmal atrial fibrillation Clinical Quality Measures DVT/VTE Risk/Contraindication: Risk Factor Score Per Nursin RFS Level Per Nursing on Admit: 4+=Very High HECTOR MORAN DO Aug 29, 2017 09:24
[2017-08-29] MEDS ORDERED: ASPIRIN 81 MG CHEW (CHILDREN'S ASA) PO NR (09:30)
[2017-08-29] MEDS ORDERED: ASPIRIN 325 MG (5 GR) TABLET PO ONE (09:30)
[2017-08-29] MEDS: POLYETHYLENE GLYCOL 17 GM (MIRALAX) PACK PO SCH ×2 (10:00→21:25)
[2017-08-29] MEDS ORDERED: PANT40TA3 PO (10:11)
[2017-08-29] MEDS ORDERED: FURO40TA4 PO ×2 (10:11)
[2017-08-29] MEDS ORDERED: ASPI-983 PO (10:11)
[2017-08-29] MEDS ORDERED: EZET10TA27 PO (10:11)
[2017-08-29] MEDS ORDERED: INSU100I23 SC (10:11)
[2017-08-29] MEDS ORDERED: CARV6.252 PO (10:11)
[2017-08-29] MEDS ORDERED: NITR0.4T42 SL (10:11)
[2017-08-29] MEDS: PANTOPRAZOLE 40 MG (PROTONIX) TAB PO SCH (10:23)
[2017-08-29] MEDS: SPIRONOLACTONE 25 MG (ALDACTONE) TAB PO SCH (10:23)
[2017-08-29] MEDS: ISOSORBIDE MONONITRATE 60 MG (IMDUR) TAB PO SCH (10:24)
[2017-08-29] MEDS: FUROSEMIDE 40 MG (LASIX) TAB PO SCH (10:24)
[2017-08-29] MEDS: CARVEDILOL 6.25 MG (COREG) TAB PO SCH ×2 (10:24→21:24)
--- NOTE | 2017-08-29 10:30 | Progress Note-Urology ---
Progress Note-Urology Progress Notes/Assess & Plan Progress/Assessment & Plan VOIDING ON OWN. FEELS EMPTYING WELL. CHECK BLADDER SCAN PVR Final Diagnosis URINE RETENTION YOLETTE CARY MD Aug 29, 2017 10:30 am
--- NOTE | 2017-08-29 10:52 | PM&R Post Admission Assessment ---
Post Admission Physician Asses Date seen by provider: Aug 29, 2017 Time seen by provider: 08:00 Admisison Dx: (1) STENOSIS The preadmission screen agrees with the post admission assessment that the patient is a good candidate for inpatient rehabilitation. The patient will have a comprehensive program of inpatient rehabilitation with a goal of maximizing level of functional independence prior to discharge home with spouse. The patient will have PT/OT ninety minutes per day, each discipline, five days a week for gait, strengthening, conditioning, balance, ADLs, any patient/family/caregiver training as necessary. Speech therapy to do cognitive assessment and treat as indicated. Rehabilitation nursing to assist with bowel, bladder, skin, wound care, medication administration, pain management. Photographic Processor to assist with discharge planning, community reentry. SCD's for DVT prophylaxis. He appears to be well motivated to participate in three hours of therapy a day. He should be able to tolerate three hours of therapy a day from a medical and surgical standpoint. He should benefit from the three hours of therapy a day. He has a reasonable discharge plan, reasonable discharge rehabilitation goals and a supportive family. He has various comorbidities that need to be closely monitored with medications and treatments adjusted on a daily basis as needed. He was having some nausea and abdominal distention ast evening associated with constipation but this has improved with IVFS and a BM These include: Postop constipation and nausea and Ileus AXEL BPH Chronic anemia PAF CAD s/p CABG and stents Prior spine surgery with chronic back pain Barriers to discharge for this patient who had been independent prior to this are for him to be modified independent to supervision for ADLs and mobility skills prior to discharge home with spouse and HHC, so as to lessen the burden of the caregivers. Risks for this patient include: 1. Fall 2. Fracture 3. DVT 4. Pulmonary embolism 5. Wound infection 6. Skin breakdown 7. Contractures 8. Poorly controlled pain 9. Urinary retention 10. UTI 11. Respiratory infection 12. Aspiration 13. Worsening anemia 14. Postop ileus 15. Poorly controlled DM 16. recurrent PAF 17. Obstipation Estimated Length of Stay: 14 days Prognosis: Rehab prognosis appears good for goal of discharge home with spouse modified independent to supervision for ADLs and mobility skills. General: Alert, Oriented X3, Cooperative, No Acute Distress HEENT: Atraumatic, PERRLA, EOMI, Mucous Memb Moist/[place] Neck: Supple, No JVD Lungs: Clear to Auscultation Heart: Regular Rate Abdomen: Normal Bowel Sounds, Soft, No Tenderness, Other (distended) Extremities: No Edema Neuro: Other (Strength 4-/5 lower limbs 4/5 both upper limbs) JACQUES GALLO MD Aug 29, 2017 10:52
--- NOTE | 2017-08-29 10:54 | Occupational Ther Daily Note ---
OT Current Status-Daily Note Subjective Pt seen in room, up in recliner, agreeable to OT. Continues to have abdominal discomfort. Would like to shower Appearance Alert, cooperative Mental Status/Objective Functional [place] Measure 0=Not Assessed/NA 4=Minimal Assistance 1=Total Assistance 5=Supervision or Setup 2=Maximal Assistance 6=Modified [place] 3=Moderate Assistance 7=Complete [place] ADL-Treatment Pt walked with CGA, FWW to bathroom and got on/off tall toilet with CGA, grab bar. Needed just a little help to grasp pants with L hand to lower them ( reaching under back brace). Able to manage hygiene. Pt educ use of dressing stick to take slipper socks off. Walked to shower with CGA, FWW and transferred into shower and on to shower bench with CGA, grab bars. IV site and dressing covered for bathing. Pt was able to wash and dry all parts after given long handled sponge (for lower legs) and with CGA when standing to dry bottom. Hand held shower, grab bar, shower bench. In shower donned t shirt with setup and brief/shorts with min assist, using dressing stick (pt educ on technique) and min assist to pull pants up on L side. Unable to put back brace on himself. Pt walked to recliner for TEDs, with pt educ for pt and on donning TEDs modified technique. Pt educ use of sock aid to don slipper socks. He was able to do this min assist but struggled a little due to decreased coord L hand. Pt left up in recliner, back brace on, present, all needs met. Functional [place] Measure 0=Not Assessed/NA 4=Minimal Assistance 1=Total Assistance 5=Supervision or Setup 2=Maximal Assistance 6=Modified [place] 3=Moderate Assistance 7=Complete IndependenceIRFPAI Quality Coding Scale 6 Independent with activity with or without an assistive device 5 Patient requires set up or clean up by helper. Patient completes activity by themselves 4 Supervision or touching assist (CGA). [place] provide cues , steadying assist 3 The helper provides less than half the effort to complete the activity 2 The helper provides more than half the effort to complete the activity 1 Dependent. The helper does all the effort to complete an activity 7 Patient refused to complete or attempt activity 9 The patient did not perform the activity before the current illness or injury 88 Not attempted due to Medical conditions or safety concerns Bathing (FIM): 3 (Unable to wash lower legs, provided with long handled sponge and able to do it. CGA when standing for balance. 80% but also CGA) Shower/Bathe Self (QC): 3 Upper Body (FIM): 5 Lower Body Dressing (FIM): 3 (CGA, min assist to pull pants up L side. Dressing stick to take socks off, sock aid to don them. Setup for TEDs) Toileting (FIM): 4 Shower Transfer(FIM): 4 (CGA) Education OT Patient Education: Instructions to caregiver, Modified ADL techniques, Purpose of tx/functional activities, Transfer techniques, Use of adapted equipment Teaching Recipient: Patient Teaching Methods: Demonstration, Discussion Response to Teaching: Verbalize Understanding, Return Demonstration OT Short Term Goals Short Term Goals Time Frame: Sep 04, 2017 Lower Body Dressing(FIM): 5 Toilet/Commode Transfer(FIM): 5 Additional Short Term Goals: 1-Demonstrate ADL Tasks, 2-Verbalize Understanding , 3-ImproveStrength/Narciso 1=Demonstrate adherence to instructed precautions during ADL tasks. 2=Patient will verbalize/demonstrate understanding of assistive devices/ modifications for ADL. 3=Patient will improve strength/tolerance for activity to enable patient to perform ADL's. OT Shelter Goals Shelter Goals Time Frame: Sep 08, 2017 Eating (FIM): 7 Eating (QC): 6 Groomin Oral Hygiene (QC): 6 Bathing(FIM): 6 Shower/Bathe Self (QC): 6 Upper Body Dressing(FIM): 6 Upper Body Dressing (QC): 6 Lower Body Dressing(FIM): 6 Lower Body Dressing (QC): 6 On/Off Footwear (QC): 6 Toileting(FIM): 6 Toileting Hygiene (QC): 6 Toilet/Commode Transfer(FIM): 6 Toilet/Commode Transfer (QC): 6 Shower Transfer(FIM): 6 Additional Goals: 1-Demonstrate ADL Tasks, 2-Verbalize Understanding, 3- ImproveStrength/Narciso 1=Demonstrate adherence to instructed precautions during ADL tasks. 2=Patient will verbalize/demonstrate understanding of assistive devices/ modifications for ADL. 3=Patient will improve strength/tolerance for activity to enable patient to perform ADL's. OT Education/Plan Problem List/Assessment Pt would benefit from skilled OT to increase his independence in basic self care to allow him to safely return home with family Discharge Recommendations Plan/Recommendations: Continue POC Treatment Plan/Plan of Care Patient would benefit from OT for education, treatment and training to promote independence in ADL's, mobility, safety and/or upper extremity function for ADL' s. Plan of Care: ADL Retraining, Functional Mobility, Group Exercise/Act as Ind ( education, exercise, funct activity, activity tolerance, socialization), UE Funct Exercise/Act, UE Neuromus Re-Ed/Coord Treatment Duration: Sep 08, 2017 Frequency: At least 5 of 7 days/Wk (IRF) Estimated Hrs Per Day: 1.5 hours per day Agreement: Yes Rehab Potential: Good Time/GCodes Start Time: 08:28 Stop Time: 09:30 Total Time Billed (hr/min): 62 Billed Treatment Time visit, 62 minutes ADL GRANT FARIAS OT Aug 29, 2017 10:54
--- NOTE | 2017-08-29 12:05 | Physical Therapy Daily Note ---
PT Daily Note-Current Subjective Pt. agrees to rx. Comments on all his past medical issues. No c/o pain this date. States his real issues are that her really needs to have a BM. Pain Numeric Pain Scale: 0-No Pain Mental Status Patient Orientation: Normal For Age Attachments: Other-See Comments (back brace), IV Transfers Functional [place] Measure 0=Not Assessed/NA 4=Minimal Assistance 1=Total Assistance 5=Supervision or Setup 2=Maximal Assistance 6=Modified [place] 3=Moderate Assistance 7=Complete IndependenceIRFPAI Quality Coding Scale 6 Independent with activity with or without an assistive device 5 Patient requires set up or clean up by helper. Patient completes activity by themselves 4 Supervision or touching assist (CGA). [place] provide cues , steadying assist 3 The helper provides less than half the effort to complete the activity 2 The helper provides more than half the effort to complete the activity 1 Dependent. The helper does all the effort to complete an activity 7 Patient refused to complete or attempt activity 9 The patient did not perform the activity before the current illness or injury 88 Not attempted due to Medical conditions or safety concerns Transfers (B, C, W/C) (FIM): 5 Scootin Rollin Supine to/from Sit: 5 Sit to/from Stand: 5 Weight Bearing Right Lower Extremity: Right Weight Bearing/Tolerated Left Lower Extremity: Left Weight Bearing/Tolerated Gait Training Does the Patient Walk?: Yes Gait (FIM): 5 Distance (FIM): 3=150 ft (200x2, 150) Gait Level of Assist: 5 Gait Persons Needed: 1 Gait Assistive Device: FWW slow, flexed at trunk, no LOB Exercises Supine Ex: Ankle pumps, Quad Set, Rolling, Glut sets, Heel Slides, Short Arc Quads, Scooting, Hip abd/add Supine Reps: 15 Seated Therapy Exercises: Ankle pumps, Sit to stand, Long arc quads, Hip abd/ add Seated Reps: 12 core initiation, alternating hooklying may Assessment Current Status: Good Progress feels he needs to have a BM, cant,put on liquid diet PT Short Term Goals Short Term Goals Time Frame: Sep 01, 2017 Gait (FIM): 5 PT Correction Goals Aboriginal Liaison Officer Goals PT Aboriginal Liaison Officer Goals Time Frame: Sep 06, 2017 Transfers (B,C,W/C) (FIM): 6 Sit to Lying (QC): 6 Lying-Sitting on Side/Bed(QC): 6 Sit to Stand (QC): 6 Roll Left to Right (QC): 6 Chair/Mgx-na-Zonzt Xfer(QC): 6 Car Transfer (QC): 6 Does the Patient Walk: Yes Gait (FIM): 6 Gait distance (FIM): 3=150 ft Walk 10 feet (QC): 6 Walk 10ft-Uneven Surface(QC): 6 Walk 50ft with 2 Turns (QC): 6 Walk 150 ft (QC): 6 Gait Assistive Device: FWW Does the Pt use WC or Scooter?: No Stairs (FIM): 5 # of Steps: 4 1 Step (curb) (QC): 6 4 Steps (QC): 6 12 Steps (QC): 88 Picking up an Object (QC): 88 PT Plan Treatment/Plan Treatment Plan: Continue Plan of Care Treatment Plan: Bed Mobility, Education, Functional Activity Narciso, Functional Strength, Group Therapy, Gait, Safety, Therapeutic Exercise, Transfers Treatment Duration: Sep 06, 2017 Frequency: At least 5 of 7 days/Wk (IRF) Estimated Hrs Per Day: 1.5 hours per day Patient and/or Family Agrees t: Yes Safety Risks/Education Patient Education: Gait Training, Transfer Techniques Teaching Recipient: Patient Teaching Methods: Demonstration, Discussion Response to Teaching: Verbalize Understanding, Return Demonstration, Reinforcement Needed Time/GCodes Time In: 1100 Time Out: 1200 Total Billed Treatment Time: 60 Total Billed Treatment 1,FA30m,GT15m,EX15m G Codes Necessary: MITCHELL Witt WIND ENERGY MECHANIC Aug 29, 2017 12:05
--- NOTE | 2017-08-29 13:38 | Occupational Ther Daily Note ---
OT Current Status-Daily Note Subjective Pt alert, sitting in recliner. present in room. Agrees to therapy. Mental Status/Objective Patient Orientation: Person, Place, Time, Situation Functional [place] Measure 0=Not Assessed/NA 4=Minimal Assistance 1=Total Assistance 5=Supervision or Setup 2=Maximal Assistance 6=Modified [place] 3=Moderate Assistance 7=Complete [place] Attachments: IV, Other-See Comments (back brace) ADL-Treatment Functional [place] Measure 0=Not Assessed/NA 4=Minimal Assistance 1=Total Assistance 5=Supervision or Setup 2=Maximal Assistance 6=Modified [place] 3=Moderate Assistance 7=Complete IndependenceIRFPAI Quality Coding Scale 6 Independent with activity with or without an assistive device 5 Patient requires set up or clean up by helper. Patient completes activity by themselves 4 Supervision or touching assist (CGA). [place] provide cues , steadying assist 3 The helper provides less than half the effort to complete the activity 2 The helper provides more than half the effort to complete the activity 1 Dependent. The helper does all the effort to complete an activity 7 Patient refused to complete or attempt activity 9 The patient did not perform the activity before the current illness or injury 88 Not attempted due to Medical conditions or safety concerns Other Treatment Assist to don back brace. Pt ambulated with CGA for safety using FWW to therapy gym. Arm bike completed 15 min at 20-25 guerrero resistance to increase strength and activity tolerance for daily functional tasks. Pt ambulated back to room using FWW with CGA. Transferred to toilet with CGA using grabbars and FWW. Assist to manipulate clothing and hygiene after BM. Assist to doff back brace. Assist to lift LE's into bed then for bed mobility. After therapy, pt lying in bed with present. Nrsg told that pt had urinated and needed to get a bladder scan. All needs met in room. OT Short Term Goals Short Term Goals Time Frame: Sep 04, 2017 Lower Body Dressing(FIM): 5 Toilet/Commode Transfer(FIM): 5 Additional Short Term Goals: 1-Demonstrate ADL Tasks, 2-Verbalize Understanding , 3-ImproveStrength/Narciso 1=Demonstrate adherence to instructed precautions during ADL tasks. 2=Patient will verbalize/demonstrate understanding of assistive devices/ modifications for ADL. 3=Patient will improve strength/tolerance for activity to enable patient to perform ADL's. OT Skilled Nursing Goals Wire Frame Dipper Goals Time Frame: Sep 08, 2017 Eating (FIM): 7 Eating (QC): 6 Groomin Oral Hygiene (QC): 6 Bathing(FIM): 6 Shower/Bathe Self (QC): 6 Upper Body Dressing(FIM): 6 Upper Body Dressing (QC): 6 Lower Body Dressing(FIM): 6 Lower Body Dressing (QC): 6 On/Off Footwear (QC): 6 Toileting(FIM): 6 Toileting Hygiene (QC): 6 Toilet/Commode Transfer(FIM): 6 Toilet/Commode Transfer (QC): 6 Shower Transfer(FIM): 6 Additional Goals: 1-Demonstrate ADL Tasks, 2-Verbalize Understanding, 3- ImproveStrength/Narciso 1=Demonstrate adherence to instructed precautions during ADL tasks. 2=Patient will verbalize/demonstrate understanding of assistive devices/ modifications for ADL. 3=Patient will improve strength/tolerance for activity to enable patient to perform ADL's. OT Education/Plan Problem List/Assessment Pt would benefit from skilled OT to increase his independence in basic self care to allow him to safely return home with family Discharge Recommendations Plan/Recommendations: Continue POC Treatment Plan/Plan of Care Patient would benefit from OT for education, treatment and training to promote independence in ADL's, mobility, safety and/or upper extremity function for ADL' s. Plan of Care: ADL Retraining, Functional Mobility, Group Exercise/Act as Ind ( education, exercise, funct activity, activity tolerance, socialization), UE Funct Exercise/Act, UE Neuromus Re-Ed/Coord Treatment Duration: Sep 08, 2017 Frequency: At least 5 of 7 days/Wk (IRF) Estimated Hrs Per Day: 1.5 hours per day Agreement: Yes Rehab Potential: Good Time/GCodes Start Time: 13:00 Stop Time: 13:30 Total Time Billed (hr/min): 30 Billed Treatment Time 1 visit-EX 1 (15 min) FA 1 (15 min) BRAYAN BERGER Aug 29, 2017 13:38
--- NOTE | 2017-08-29 15:26 | Physical Therapy Daily Note ---
PT Daily Note-Current Subjective C/o he is a little tired but but really wants to get u and move, "It helps" Pain Numeric Pain Scale: 3 Location: Medial Location Body Site: Back Pain Description: Ache Mental Status Patient Orientation: Normal For Age Transfers Functional [place] Measure 0=Not Assessed/NA 4=Minimal Assistance 1=Total Assistance 5=Supervision or Setup 2=Maximal Assistance 6=Modified [place] 3=Moderate Assistance 7=Complete IndependenceIRFPAI Quality Coding Scale 6 Independent with activity with or without an assistive device 5 Patient requires set up or clean up by helper. Patient completes activity by themselves 4 Supervision or touching assist (CGA). [place] provide cues , steadying assist 3 The helper provides less than half the effort to complete the activity 2 The helper provides more than half the effort to complete the activity 1 Dependent. The helper does all the effort to complete an activity 7 Patient refused to complete or attempt activity 9 The patient did not perform the activity before the current illness or injury 88 Not attempted due to Medical conditions or safety concerns all TRFs sup to sit and sit to sup slow with much effort but SBA only Weight Bearing Right Lower Extremity: Right Weight Bearing/Tolerated Left Lower Extremity: Left Weight Bearing/Tolerated Gait Training Does the Patient Walk?: Yes Gait Assistive Device: FWW [id number], 100 ft x1 SBA, assist for IV and cues for increased alignment Exercises Supine Ex: Ankle pumps, Quad Set, Glut sets, Heel Slides, Short Arc Quads, Scooting, Hip abd/add Supine Reps: 12 Seated Therapy Exercises: Ankle pumps, Sit to stand, Long arc quads Seated Reps: 12 Assessment Current Status: Good Progress resting better, decreased pain , increased mobility PT Short Term Goals Short Term Goals Time Frame: Sep 01, 2017 Gait (FIM): 5 PT Residential Goals Residential Goals PT Residential Goals Time Frame: Sep 06, 2017 Transfers (B,C,W/C) (FIM): 6 Sit to Lying (QC): 6 Lying-Sitting on Side/Bed(QC): 6 Sit to Stand (QC): 6 Rollin Roll Left to Right (QC): 6 Chair/Imo-nj-Tuntf Xfer(QC): 6 Car Transfer (QC): 6 Does the Patient Walk: Yes Gait (FIM): 6 Gait distance (FIM): 3=150 ft Walk 10 feet (QC): 6 Walk 10ft-Uneven Surface(QC): 6 Walk 50ft with 2 Turns (QC): 6 Walk 150 ft (QC): 6 Gait Assistive Device: FWW Does the Pt use WC or Scooter?: No Stairs (FIM): 5 # of Steps: 4 1 Step (curb) (QC): 6 4 Steps (QC): 6 12 Steps (QC): 88 Picking up an Object (QC): 88 PT Plan Treatment/Plan Treatment Plan: Continue Plan of Care Treatment Plan: Bed Mobility, Education, Functional Activity Narciso, Functional Strength, Group Therapy, Gait, Safety, Therapeutic Exercise, Transfers Treatment Duration: Sep 06, 2017 Frequency: At least 5 of 7 days/Wk (IRF) Estimated Hrs Per Day: 1.5 hours per day Patient and/or Family Agrees t: Yes Safety Risks/Education Patient Education: Gait Training, Transfer Techniques, Correct Positioning, Safety Issues Teaching Recipient: Patient Teaching Methods: Demonstration, Discussion Response to Teaching: Verbalize Understanding, Return Demonstration, Reinforcement Needed Time/GCodes Time In: 1445 Time Out: 1515 Total Billed Treatment Time: 30 Total Billed Treatment 1,GT20m,EX10m G Codes Necessary: No MITCHELL ARAMBULA DRIER TENDER NAPHTHALENE Aug 29, 2017 15:26
[2017-08-29 16:37] VITALS: BP 181/61
[2017-08-29] MEDS ORDERED: ACETAMINOPHEN 325 MG TABLET PO PRN (16:45)
--- NOTE | 2017-08-29 17:33 | PM & R (SOAP) Progress Note ---
Subjective This was a face to face visit with the patient. Date Seen by Provider: Aug 29, 2017 Time Seen by Provider: 07:45 Subjective/Events-last exam Patient was seen in his room this AM Appreciate Dr Clark note and orders Patient feeling better this AM Patient SBA for transfers IV fluids continue Had nausea and emesis last evening Review of Systems Gastrointestinal: Constipation Objective Physician Exam Last Set of Vital Signs Vital Signs Date Time Temp Pulse Resp B/P (MAP) Pulse Ox O2 Delivery O2 Flow Rate FiO2 08/29/17 16:37 98.0 65 16 181/61 (101) 95 Room Air 08/29/17 01:22 2.00 Capillary Refill : General: Alert, Oriented X3, Cooperative, No Acute Distress HEENT: Atraumatic, PERRLA, EOMI, Mucous Memb Moist/[place] Neck: Supple, No JVD Lungs: Clear to Auscultation Heart: Regular Rate Abdomen: Normal Bowel Sounds, Soft, No Tenderness, Other (distended) Extremities: No Edema Neuro: Other (Strength 4-/5 lower limbs 4/5 both upper limbs) Results Lab Data Laboratory Tests 08/28/17 17:06: Glucometer 138H 08/28/17 20:35: Glucometer 115H 08/29/17 05:22: Glucometer 89 08/29/17 10:07: 08/29/17 11:16: Glucometer 156H 08/29/17 16:35: Glucometer 119H Assessment/Plan Assessment and Plan recurrent lumbar stenosis with associated neurogenic claudication and radiculopathy improved s/p decompressive surgery AXEL on CPAP Postop constipation improved Postop anemia on replacement Type 2 DM on meds Postop urinary retention improved s/p cysto PAF on meds Chronic Kidney D stage 4 HLP CAD s/p CABG and stent Plan Continue PT/OT F/U with Hospitalist Team Conference tomorrow (1) STENOSIS Status: Acute Co-Morbidities that are continuing to impact the rehab process: (include details ) JACQUES GALLO MD Aug 29, 2017 17:33
[2017-08-29 18:00] VITALS: BP 155/67
--- NOTE | 2017-08-29 20:21 | Progress Note ---
Subjective Date Seen by Provider: Aug 29, 2017 Time Seen by Provider: 11:32 Subjective/Events-last exam Had 3 small bm. Abdomen still distended but feeling slightly better. Passing small amount of flatus as well. Working with PT to ambulate more. Having some slight nausea after eating breakfast. Denies fever sweats chills shortness of breath or chest pain. Urinating. Objective Exam Vital Signs Date Time Temp Pulse Resp B/P (MAP) Pulse Ox O2 Delivery O2 Flow Rate FiO2 08/29/17 19:00 94 Room Air 08/29/17 18:00 80 155/67 (96) 08/29/17 16:37 98.0 65 16 181/61 (101) 95 Room Air 08/29/17 15:11 98 Room Air 08/29/17 13:00 83 08/29/17 09:35 96 Room Air 08/29/17 09:00 Room Air 08/29/17 07:00 82 08/29/17 06:00 97.2 89 20 158/67 (97) 94 Room Air 08/29/17 01:22 94 NIV CPAP 2.00 08/29/17 01:00 71 08/28/17 21:32 90 Room Air 08/28/17 21:00 96 NIV CPAP Capillary Refill : General Appearance: No Apparent Distress, WD/WN, Chronically ill, Obese HEENT: PERRL/EOMI Respiratory: Lungs Clear, Normal Breath Sounds Cardiovascular: Regular Rate, Rhythm, No Edema Gastrointestinal: distended (minimal tenderness) Extremity: Normal Inspection Neurologic/Psychiatric: Alert, Oriented x3, No Motor/Sensory Deficits, Normal Mood/Affect Skin: Warm/Dry Results Lab Laboratory Tests 08/28/17 20:35: Glucometer 115H 08/29/17 05:22: Glucometer 89 08/29/17 10:07: 08/29/17 11:16: Glucometer 156H 08/29/17 16:35: Glucometer 119H Assessment/Plan Assessment/Plan Assessment/Plan Lumbar stenosis with radiculopathy- status post L3 to 5 TLIF/PSF CAD Acute on chronic renal insufficiency Acute on chronic anemia Urinary retention Post operative ileus had a few small bm, abdomen still distended, but feeling slightly better. repeat abdominal x rays in am repeat labs in am cbc,cmp mag/phos clear liquids zofran prn nausea will follow Clinical Quality Measures DVT/VTE Risk/Contraindication: Risk Factor Score Per Nursin RFS Level Per Nursing on Admit: 4+=Very High ELVIA ADAMS DO Aug 29, 2017 20:21
[2017-08-29] MEDS: ATORVASTATIN 80 MG (LIPITOR) TABLET PO SCH (21:24)
[2017-08-29] MEDS: eZETimibe 10 MG (ZETIA) TABLET PO SCH (21:24)
[2017-08-29] MEDS: FENOFIBRATE 134 MG (LOFIBRA) CAPSULE PO SCH (21:24)
[2017-08-29] MEDS: doxAzosin 4 MG (CARDURA) TAB PO SCH (21:25)
[2017-08-29] MEDS: HYDROcodone/APAP 7.5 MG/325 MG (LORTAB, LORCET PLUS) TABLET PO PRN (21:30)
[2017-08-30] MEDS: 1/2 NS W/KCL 20 MEQ/L 1,000 ML IV SCH ×3 (05:29→17:08)
[2017-08-30 05:32] VITALS: BP 170/71
[2017-08-30] MEDS: inSUlin ASPART (NovoLOG) 1 UNIT/0.01 ML (CHARGE PER UNIT) SC SCH ×4 (05:32→21:10)
[2017-08-30 05:34] LABS: BASOPHILS % (AUTO) 0 % (0-10); EOSINOPHILS # (AUTO) 0.2 10^3/uL (0.0-0.3); EOSINOPHILS % (AUTO) 3 % (0-10); HEMATOCRIT 25 % (40-54); HEMOGLOBIN 8.2 G/DL (13.3-17.7); LYMPHOCYTES % (AUTO) 16 % (12-44); MEAN CORPUSCULAR HGB CONC 33 G/DL (32-36); MEAN CORPUSCULAR VOLUME 104 FL (80-99); MEAN PLATELET VOLUME 9.9 FL (7.4-10.4); MONOCYTES # (AUTO) 0.8 X 10^3 (0.0-1.0); MONOCYTES % (AUTO) 13 % (0-12); NEUTROPHILS # (AUTO) 4.3 X 10^3 (1.8-7.8); NEUTROPHILS % (AUTO) 68 % (42-75); PLATELET COUNT 200 10^3/uL (130-400); RED BLOOD COUNT 2.38 10^6/uL (4.35-5.85); RED CELL DISTRIBUTION WIDTH 13.3 % (10.0-14.5); WHITE BLOOD COUNT 6.4 10^3/uL (4.3-11.0)
[2017-08-30 05:38] LABS: MEAN CORPUSCULAR HEMOGLOBIN 34 PG (25-34)
[2017-08-30] MEDS: PANTOPRAZOLE 40 MG (PROTONIX) TAB PO SCH (05:51)
[2017-08-30] MEDS: ONDANSETRON 4 MG (ZOFRAN) ORAL DISSOLVE TAB PO PRN (05:51)
[2017-08-30 06:21] LABS: ALBUMIN 2.7 GM/DL (3.2-4.5); BILIRUBIN,TOTAL 0.6 MG/DL (0.1-1.0); CALCIUM 8.4 MG/DL (8.5-10.1); CREATININE SERUM 1.48 MG/DL (0.60-1.30); MAGNESIUM 1.9 MG/DL (1.8-2.4); PHOSPHORUS 2.9 MG/DL (2.3-4.7); POTASSIUM 4.3 MMOL/L (3.6-5.0); TOTAL PROTEIN 5.2 GM/DL (6.4-8.2)
[2017-08-30] MEDS: MULTIVIT W/MINERALS TAB (THERAGRAN M) PO SCH (06:33)
[2017-08-30] MEDS: VITAMIN D3 1,000 UNITS (CHOLECALCIFEROL) TABLET PO SCH (06:33)
[2017-08-30] MEDS: ISOSORBIDE MONONITRATE 60 MG (IMDUR) TAB PO SCH (06:33)
[2017-08-30] MEDS: OMEGA 3 (FISH OIL) 1000 MG CAP PO SCH ×2 (06:33→16:37)
[2017-08-30] MEDS: FERROUS SULF 325 MG (IRON) TAB PO SCH (06:33)
--- NOTE | 2017-08-30 06:56 | Progress Note-Urology ---
Progress Note-Urology Progress Notes/Assess & Plan Progress/Assessment & Plan VOIDING WELL, PVR 0, KEEP ON FLOMAX Final Diagnosis URINE RETENTION (RESOLVED) YOLETTE CARY MD Aug 30, 2017 06:56
--- NOTE | 2017-08-30 06:59 | Progress Note-Urology ---
Progress Note-Urology Progress Notes/Assess & Plan Progress/Assessment & Plan PSA 0,74 Final Diagnosis URINE RETENTION (RESOLVED) YOLETTE CARY MD Aug 30, 2017 6:59 am
[2017-08-30] MEDS: RT-ALBUTEROL SULF 2.5 MG/3 ML PRE-MIX VIAL INH SCH ×3 (07:14→20:03)
[2017-08-30] MEDS: CARVEDILOL 6.25 MG (COREG) TAB PO SCH ×2 (08:24→20:48)
[2017-08-30] MEDS: FUROSEMIDE 40 MG (LASIX) TAB PO SCH (08:24)
[2017-08-30] MEDS: ASPIRIN 81 MG CHEW (CHILDREN'S ASA) PO SCH (08:24)
[2017-08-30] MEDS: SPIRONOLACTONE 25 MG (ALDACTONE) TAB PO SCH (08:24)
[2017-08-30] MEDS: HYDROcodone/APAP 7.5 MG/325 MG (LORTAB, LORCET PLUS) TABLET PO PRN ×3 (08:25→20:48)
[2017-08-30 08:40] VITALS: BP 158/64
--- NOTE | 2017-08-30 08:40 | PM & R (SOAP) Progress Note ---
Subjective This was a face to face visit with the patient. Date Seen by Provider: Aug 30, 2017 Time Seen by Provider: 07:45 Subjective/Events-last exam Patient was seen in his room this AM Patient SBA for transfers Abdominal pain rersolved Had BM and is eating C/O Back pain Review of Systems Musculoskeletal: back pain Objective Physician Exam Last Set of Vital Signs Vital Signs Date Time Temp Pulse Resp B/P (MAP) Pulse Ox O2 Delivery O2 Flow Rate FiO2 08/30/17 07:16 94 Room Air 08/30/17 07:00 68 08/30/17 05:32 98.2 18 170/71 (104) 08/29/17 01:22 2.00 Capillary Refill : I&O Intake and Output 08/30/17 00:00 Intake Total 2820 ml Output Total 700 ml Balance 2120 ml Intake Oral 820 ml IV Total 2000 ml Output Urine Total 700 ml # Voids 4 # Bowel Movements 4 General: Alert, Oriented X3, Cooperative, No Acute Distress HEENT: Atraumatic, PERRLA, EOMI, Mucous Memb Moist/[place] Neck: Supple, No JVD Lungs: Clear to Auscultation Heart: Regular Rate Abdomen: Normal Bowel Sounds, Soft, No Tenderness, Other (distended) Extremities: No Edema Neuro: Other (Strength 4-/5 lower limbs 4/5 both upper limbs) Results Lab Data Laboratory Tests 08/28/17 17:06: Glucometer 138H 08/28/17 20:35: Glucometer 115H 08/29/17 05:22: Glucometer 89 08/29/17 11:16: Glucometer 156H 08/29/17 11:17: Prostate Specific Antigen 0.74 08/29/17 16:35: Glucometer 119H 08/29/17 20:21: Glucometer 154H 08/30/17 05:17: White Blood Count 6.4, Red Blood Count 2.38L, Hemoglobin 8.2L, Hematocrit 25L, Mean Corpuscular Volume 104H, Mean Corpuscular Hemoglobin 34, Mean Corpuscular Hemoglobin Concent 33, Red Cell Distribution Width 13.3, Platelet Count 200, Mean Platelet Volume 9.9, Neutrophils (%) (Auto) 68, Lymphocytes (%) (Auto) 16, Monocytes (%) (Auto) 13H, Eosinophils (%) (Auto) 3, Basophils (%) (Auto) 0, Neutrophils # (Auto) 4.3, Lymphocytes # (Auto) 1.0, Monocytes # (Auto) 0.8, Eosinophils # (Auto) 0.2, Basophils # (Auto) 0.0, Sodium Level 138, Potassium Level 4.3, Chloride Level 110H, Carbon Dioxide Level 21, Anion Gap 7, Blood Urea Nitrogen 37H, Creatinine 1.48H, Estimat Glomerular Filtration Rate 48, BUN/ Creatinine Ratio 25, Glucose Level 127H, Calcium Level 8.4L, Phosphorus Level 2.9, Magnesium Level 1.9, Total Bilirubin 0.6, Aspartate Amino Transf (AST/SGOT ) 32, Alanine Aminotransferase (ALT/SGPT) 19, Alkaline Phosphatase 19L, Total Protein 5.2L, Albumin 2.7L 08/30/17 05:27: Glucometer 128H Assessment/Plan Assessment and Plan recurrent Lumbar stenosis with associated neurogenic claudication and radiculopathy improved s/p Decompressive surgery. AXEL on CPAP Postop constipation resolved Postop anemia on replacement Type 2 DM on meds PAF on meds Chronic Kidney D stage 4 HLP Cad s/p stent and CABG Plan Continue PT/OT Team Conference later today see report for full functional update and POC and ELOS (1) STENOSIS Status: Resolved Co-Morbidities that are continuing to impact the rehab process: (include details ) JACQUES GALLO MD Aug 30, 2017 08:40
--- NOTE | 2017-08-30 08:55 | Diagnostic Imaging Report ---
INDICATION: Ileus, distention Exam compared with 08/28/2017. Some mild gaseous distention of the distal ascending as well as the transverse colon appeared similar in magnitude to prior. There is interval decompression of the rectosigmoid and left colon. No substantial small bowel dilatation on followup. With upright views there are some scattered air-fluid levels. IMPRESSION: Interval reduction in the distribution of a colonic gaseous distention. No residual small bowel dilatation evident. No adverse development. Dictated by: Dictated on workstation # [id number]
[2017-08-30] MEDS ORDERED: ASPIRIN 325 MG (5 GR) TABLET PO SCH (09:00)
[2017-08-30] MEDS: POLYETHYLENE GLYCOL 17 GM (MIRALAX) PACK PO SCH ×2 (09:57→21:06)
[2017-08-30] MEDS: SENNA W/DOCUSATE (SENOKOT S) TABLET PO SCH ×2 (09:58→21:06)
[2017-08-30] MEDS: inSUlin DETERMIR 1 UNIT/0.01 ML (LEVEMIR) CHARGE PER UNIT SQ SCH ×2 (09:58→21:06)
--- NOTE | 2017-08-30 10:41 | Progress Note-Hospitalist ---
Subjective HPI/CC On Admission Date Seen by Provider: Aug 30, 2017 Time Seen by Provider: 10:30 Subjective/Events-last exam Patient doing much better Bowels are moving Dr. Rodriguez advance diet Feels like he is in atrial fibrillation so telemetry is monitoring that closely and cardiology is on consultation Urinating well Labs looked really good with creatinine 1.4 Review of Systems General: Fatigue Objective Exam Vital Signs Vital Signs Date Time Temp Pulse Resp B/P (MAP) Pulse Ox O2 Delivery O2 Flow Rate FiO2 08/30/17 08:40 97.4 62 18 158/64 (95) 98 Room Air 08/29/17 01:22 2.00 Capillary Refill : General Appearance: No Apparent Distress, WD/WN, Chronically ill, Obese Respiratory: Lungs Clear Cardiovascular: Regular Rate, Rhythm, No Edema Neurologic/Psychiatric: Alert, Oriented x3, No Motor/Sensory Deficits, Normal Mood/Affect Results/Procedures Lab Laboratory Tests 08/30/17 05:17 Patient resulted labs reviewed. Assessment/Plan Assessment and Plan Assess & Plan/Chief Complaint Assessment: Severe debility following lumbar spine surgery due to stenosis Status post urinary retention requiring Swanson catheter administration now discontinued appreciate urology management Postop ileus gradually improving Chronic renal sufficiency usual creatinine is 1.81.9 now 1.4 today CAD previous bypass surgery Obstructive sleep apnea Postop anemia Plan: Monitor closely Appreciate urology and general surgery evaluation Continue nebulizer treatments Tely Diagnosis/Problems Diagnosis/Problems (1) STENOSIS Status: Resolved (2) Ileus Status: Resolved (3) Urinary retention Status: Resolved (4) Delirium Status: Resolved (5) Volume overload Status: Resolved (6) Corneal abrasion, left Status: Resolved (7) AXEL on CPAP Status: Chronic (8) History of CVA (cerebrovascular accident) Status: Chronic (9) CRI (chronic renal insufficiency) Status: Chronic Qualifiers: Chronic kidney disease stage: stage 3 (moderate) Qualified Codes: N18.3 - Chronic kidney disease, stage 3 (moderate) (10) CAD (coronary artery disease), [place] coronary artery Status: Chronic Qualifiers: [place] vs. transplanted heart: [place] heart Associated angina: without angina Qualified Codes: I25.10 - Atherosclerotic heart disease of [place] coronary artery without angina pectoris (11) Hyperlipemia Status: Chronic (12) Anemia Status: Chronic Qualifiers: Anemia type: iron deficiency Iron deficiency anemia type: unspecified iron deficiency Qualified Codes: D50.9 - Iron deficiency anemia, unspecified (13) Diabetes mellitus Status: Chronic Qualifiers: Diabetes mellitus type: type 2 Diabetes mellitus salvage determiner insulin use: with penitentiary use Diabetes mellitus complication status: with circulatory complication Diabetes mellitus complication detail: with other circulatory complications Qualified Codes: E11.59 - Type 2 diabetes mellitus with other circulatory complications; Z79.4 - half-way (current) use of insulin (14) Atrial fibrillation Status: Chronic Qualifiers: Atrial fibrillation type: paroxysmal Qualified Codes: I48.0 - Paroxysmal atrial fibrillation Clinical Quality Measures DVT/VTE Risk/Contraindication: Risk Factor Score Per Nursin RFS Level Per Nursing on Admit: 4+=Very High HECTOR MORAN DO Aug 30, 2017 10:41
--- NOTE | 2017-08-30 11:43 | Occupational Ther Daily Note ---
OT Current Status-Daily Note Subjective Pt seen in room, up in recliner, agreeable to OT. Would like to shower this morning. No pain mentioned. Appearance Alert, cooperative Mental Status/Objective Functional [place] Measure 0=Not Assessed/NA 4=Minimal Assistance 1=Total Assistance 5=Supervision or Setup 2=Maximal Assistance 6=Modified [place] 3=Moderate Assistance 7=Complete [place] ADL-Treatment After covering up IV site and incision, help with donning back brace. Pt walked SBA to bathroom and transferred SBA to shower bench. Just a little help needed to push pants down on L side, under brace. Pt washed and dried all parts, seated , setup. Donned t shirt with setup, min assist with pants to pull them up on L side, under brace. Pt walked to recliner with SBA, FWW. pt reported that he would like to be able to better do hygiene after toileting and that it is difficult due to the twisting needed. Pt is interested in toilet tongs. Pt left up in recliner, all needs met. Functional [place] Measure 0=Not Assessed/NA 4=Minimal Assistance 1=Total Assistance 5=Supervision or Setup 2=Maximal Assistance 6=Modified [place] 3=Moderate Assistance 7=Complete IndependenceIRFPAI Quality Coding Scale 6 Independent with activity with or without an assistive device 5 Patient requires set up or clean up by helper. Patient completes activity by themselves 4 Supervision or touching assist (CGA). [place] provide cues , steadying assist 3 The helper provides less than half the effort to complete the activity 2 The helper provides more than half the effort to complete the activity 1 Dependent. The helper does all the effort to complete an activity 7 Patient refused to complete or attempt activity 9 The patient did not perform the activity before the current illness or injury 88 Not attempted due to Medical conditions or safety concerns Grooming (FIM): 5 (Washed hands and face in shower, setup) Bathing (FIM): 5 (SBA to stand to dry bottom. Shower bench, grab bars, hand held shower, long handled sponge. Washed and dried all parts. ) Upper Body (FIM): 5 (setup for shirt. Help with back brace) Lower Body Dressing (FIM): 4 (min help to pull pants up on L side, to tuck under back brace) Shower Transfer(FIM): 5 (SBA getting in and out of shower and on/off shower bench) Education OT Patient Education: Progress toward Goal/Update tx plan, Purpose of tx/ functional activities, Safety issues, Transfer techniques Teaching Recipient: Patient Teaching Methods: Discussion Response to Teaching: Verbalize Understanding, Return Demonstration OT Short Term Goals Short Term Goals Time Frame: Sep 04, 2017 Lower Body Dressing(FIM): 5 Toilet/Commode Transfer(FIM): 5 Additional Short Term Goals: 1-Demonstrate ADL Tasks, 2-Verbalize Understanding , 3-ImproveStrength/Narciso 1=Demonstrate adherence to instructed precautions during ADL tasks. 2=Patient will verbalize/demonstrate understanding of assistive devices/ modifications for ADL. 3=Patient will improve strength/tolerance for activity to enable patient to perform ADL's. OT Mcc Goals Lithographic Plate Maker Goals Time Frame: Sep 08, 2017 Eating (FIM): 7 Eating (QC): 6 Groomin Oral Hygiene (QC): 6 Bathing(FIM): 6 Shower/Bathe Self (QC): 6 Upper Body Dressing(FIM): 6 Upper Body Dressing (QC): 6 Lower Body Dressing(FIM): 6 Lower Body Dressing (QC): 6 On/Off Footwear (QC): 6 Toileting(FIM): 6 Toileting Hygiene (QC): 6 Toilet/Commode Transfer(FIM): 6 Toilet/Commode Transfer (QC): 6 Shower Transfer(FIM): 6 Additional Goals: 1-Demonstrate ADL Tasks, 2-Verbalize Understanding, 3- ImproveStrength/Narciso 1=Demonstrate adherence to instructed precautions during ADL tasks. 2=Patient will verbalize/demonstrate understanding of assistive devices/ modifications for ADL. 3=Patient will improve strength/tolerance for activity to enable patient to perform ADL's. OT Education/Plan Problem List/Assessment Pt would benefit from skilled OT to increase his independence in basic self care to allow him to safely return home with family Discharge Recommendations Plan/Recommendations: Continue POC Treatment Plan/Plan of Care Patient would benefit from OT for education, treatment and training to promote independence in ADL's, mobility, safety and/or upper extremity function for ADL' s. Plan of Care: ADL Retraining, Functional Mobility, Group Exercise/Act as Ind ( education, exercise, funct activity, activity tolerance, socialization), UE Funct Exercise/Act, UE Neuromus Re-Ed/Coord Treatment Duration: Sep 08, 2017 Frequency: At least 5 of 7 days/Wk (IRF) Estimated Hrs Per Day: 1.5 hours per day Agreement: Yes Rehab Potential: Good Time/GCodes Start Time: 08:30 Stop Time: 09:30 Total Time Billed (hr/min): 60 Billed Treatment Time visit, 60 minutes ADL GRANT FARIAS OT Aug 30, 2017 11:43
--- NOTE | 2017-08-30 12:11 | Physical Therapy Daily Note ---
PT Daily Note-Current Subjective Pt. agrees to Rx. States he had a BM and got relief. Rates back pain at 5/10 Pain Numeric Pain Scale: 5-Moderate Pain Location: Medial Location Body Site: Back Pain Description: Pressure Mental Status Patient Orientation: Normal For Age Attachments: Other-See Comments (back brace), IV Transfers Functional [place] Measure 0=Not Assessed/NA 4=Minimal Assistance 1=Total Assistance 5=Supervision or Setup 2=Maximal Assistance 6=Modified [place] 3=Moderate Assistance 7=Complete IndependenceIRFPAI Quality Coding Scale 6 Independent with activity with or without an assistive device 5 Patient requires set up or clean up by helper. Patient completes activity by themselves 4 Supervision or touching assist (CGA). [place] provide cues , steadying assist 3 The helper provides less than half the effort to complete the activity 2 The helper provides more than half the effort to complete the activity 1 Dependent. The helper does all the effort to complete an activity 7 Patient refused to complete or attempt activity 9 The patient did not perform the activity before the current illness or injury 88 Not attempted due to Medical conditions or safety concerns Transfers (B, C, W/C) (FIM): 6 Scootin Rollin Supine to/from Sit: 6 Sit to/from Stand: 6 Weight Bearing Right Lower Extremity: Right Weight Bearing/Tolerated Left Lower Extremity: Left Weight Bearing/Tolerated Gait Training Does the Patient Walk?: Yes Gait (FIM): 5 Distance (FIM): 3=150 ft (200x2) Gait Level of Assist: 5 Gait Persons Needed: 1 Gait Assistive Device: FWW assist for IV Stair Training Stair Training: Handrails/: 2 handrails Stairs (FIM): 2 #of Steps: 4 Stairs: Pattern: Reciprocal Level of Assist: 4 Exercises Supine Ex: Ankle pumps, Quad Set, Rolling, Glut sets, Heel Slides, Short Arc Quads, Scooting, Hip abd/add Supine Reps: 15 NuStep Minutes: 12 NuStep Workload: 3 Treatments max assist for brace Assessment Current Status: Good Progress PT Short Term Goals Short Term Goals Time Frame: Sep 01, 2017 Gait (FIM): 5 PT Gray Tender Goals Gray Tender Goals PT Half-Way Goals Time Frame: Sep 06, 2017 Transfers (B,C,W/C) (FIM): 6 Sit to Lying (QC): 6 Lying-Sitting on Side/Bed(QC): 6 Sit to Stand (QC): 6 Rollin Roll Left to Right (QC): 6 Chair/Erj-yi-Rkfsa Xfer(QC): 6 Car Transfer (QC): 6 Does the Patient Walk: Yes Gait (FIM): 6 Gait distance (FIM): 3=150 ft Walk 10 feet (QC): 6 Walk 10ft-Uneven Surface(QC): 6 Walk 50ft with 2 Turns (QC): 6 Walk 150 ft (QC): 6 Gait Assistive Device: FWW Does the Pt use WC or Scooter?: No Stairs (FIM): 5 # of Steps: 4 1 Step (curb) (QC): 6 4 Steps (QC): 6 12 Steps (QC): 88 Picking up an Object (QC): 88 PT Plan Treatment/Plan Treatment Plan: Continue Plan of Care Treatment Plan: Bed Mobility, Education, Functional Activity Narciso, Functional Strength, Group Therapy, Gait, Safety, Therapeutic Exercise, Transfers Treatment Duration: Sep 06, 2017 Frequency: At least 5 of 7 days/Wk (IRF) Estimated Hrs Per Day: 1.5 hours per day Patient and/or Family Agrees t: Yes Safety Risks/Education Patient Education: Gait Training, Transfer Techniques, Steps, Correct Positioning Teaching Recipient: Patient Teaching Methods: Demonstration, Discussion Response to Teaching: Verbalize Understanding, Return Demonstration, Reinforcement Needed Time/GCodes Time In: 1100 Time Out: 1200 Total Billed Treatment Time: 60 Total Billed Treatment 1,EX25m,FA15m,GT20m G Codes Necessary: No MITCHELL ARAMBULA CHISELER HEAD Aug 30, 2017 12:11
--- NOTE | 2017-08-30 14:25 | Therapy Group Daily Note ---
Therapy Daily Group Note Patient Education Topic Other List Below (causes of fatigue and how to manage it) Exercises LE Seated Exercise, UE Exercise Other/Notes Pt. participated in rehab group . Pt. came went ambulating with FWW CGA to SBA. Pt. was social, introduced himself and shared what makes him most fatigued at home in daily life. Pt. helped lead seated exercises by reading and demonstrating an exercise. Pt. also shared what he considers success. Pt. ambulated with FWW back to room with SBA after Rx Start Time: 13:00 Stop Time: 14:05 Total Billed Treatment Time: 65 Total Billed Treatment 1,GRP MITCHELL ARAMBULA VISUAL MERCHANDISING SPECIALIST Aug 30, 2017 14:25
[2017-08-30 18:00] VITALS: BP 150/72
--- NOTE | 2017-08-30 20:36 | Progress Note ---
Subjective Date Seen by Provider: Aug 30, 2017 Time Seen by Provider: 09:30 Subjective/Events-last exam feeling little better, less abdominal discomfort. having bm and flatus. tolerating clear liquids. less nausea pain controlled. no new complaints. abdominal x ray i reviewed showing less colonic distention Objective Exam Vital Signs Date Time Temp Pulse Resp B/P (MAP) Pulse Ox O2 Delivery O2 Flow Rate FiO2 08/30/17 20:04 92 Room Air 08/30/17 18:00 98.0 64 20 150/72 (98) 97 Room Air 08/30/17 14:31 93 Room Air 08/30/17 13:00 69 08/30/17 08:40 97.4 62 18 158/64 (95) 98 Room Air 08/30/17 08:33 Room Air 08/30/17 07:16 94 Room Air 08/30/17 07:00 68 08/30/17 05:32 98.2 61 18 170/71 (104) 94 Room Air 08/30/17 01:00 65 I & O 08/30/17 07:00 Intake Total 4700 ml Output Total 700 ml Balance 4000 ml Capillary Refill : General Appearance: No Apparent Distress, WD/WN, Chronically ill, Obese HEENT: PERRL/EOMI Respiratory: No Accessory Muscle Use, No Respiratory Distress Cardiovascular: Regular Rate, Rhythm, No Edema Gastrointestinal: distended (minimal tenderness, less distention) Extremity: Normal Inspection Neurologic/Psychiatric: Alert, Oriented x3, No Motor/Sensory Deficits, Normal Mood/Affect Skin: Warm/Dry Results Lab Laboratory Tests 08/30/17 05:17: White Blood Count 6.4, Red Blood Count 2.38L, Hemoglobin 8.2L, Hematocrit 25L, Mean Corpuscular Volume 104H, Mean Corpuscular Hemoglobin 34, Mean Corpuscular Hemoglobin Concent 33, Red Cell Distribution Width 13.3, Platelet Count 200, Mean Platelet Volume 9.9, Neutrophils (%) (Auto) 68, Lymphocytes (%) (Auto) 16, Monocytes (%) (Auto) 13H, Eosinophils (%) (Auto) 3, Basophils (%) (Auto) 0, Neutrophils # (Auto) 4.3, Lymphocytes # (Auto) 1.0, Monocytes # (Auto) 0.8, Eosinophils # (Auto) 0.2, Basophils # (Auto) 0.0, Sodium Level 138, Potassium Level 4.3, Chloride Level 110H, Carbon Dioxide Level 21, Anion Gap 7, Blood Urea Nitrogen 37H, Creatinine 1.48H, Estimat Glomerular Filtration Rate 48, BUN/ Creatinine Ratio 25, Glucose Level 127H, Calcium Level 8.4L, Phosphorus Level 2.9, Magnesium Level 1.9, Total Bilirubin 0.6, Aspartate Amino Transf (AST/SGOT ) 32, Alanine Aminotransferase (ALT/SGPT) 19, Alkaline Phosphatase 19L, Total Protein 5.2L, Albumin 2.7L 08/30/17 05:27: Glucometer 128H 08/30/17 10:54: Glucometer 220H 08/30/17 15:31: Glucometer 168H 08/30/17 20:19: Glucometer 195H Assessment/Plan Assessment/Plan Assessment/Plan Lumbar stenosis with radiculopathy- status post L3 to 5 TLIF/PSF CAD Acute on chronic renal insufficiency Acute on chronic anemia Urinary retention Post operative ileus less distention advance diet slowly no surgical intervention will continue to follow discussed less pain medication helps improve bowel function continue activity Clinical Quality Measures DVT/VTE Risk/Contraindication: Risk Factor Score Per Nursin RFS Level Per Nursing on Admit: 4+=Very High ELVIA ADAMS DO Aug 30, 2017 20:36
[2017-08-30] MEDS: ATORVASTATIN 80 MG (LIPITOR) TABLET PO SCH (20:48)
[2017-08-30] MEDS: FENOFIBRATE 134 MG (LOFIBRA) CAPSULE PO SCH (20:48)
[2017-08-30] MEDS: eZETimibe 10 MG (ZETIA) TABLET PO SCH (20:48)
[2017-08-30] MEDS: doxAzosin 4 MG (CARDURA) TAB PO SCH (20:48)
[2017-08-31] MEDS: 1/2 NS W/KCL 20 MEQ/L 1,000 ML IV SCH (03:32)
[2017-08-31 05:06] VITALS: BP 138/61
[2017-08-31] MEDS: OMEGA 3 (FISH OIL) 1000 MG CAP PO SCH ×2 (07:18→16:17)
[2017-08-31] MEDS: inSUlin ASPART (NovoLOG) 1 UNIT/0.01 ML (CHARGE PER UNIT) SC SCH ×4 (07:18→21:24)
[2017-08-31] MEDS: ISOSORBIDE MONONITRATE 60 MG (IMDUR) TAB PO SCH (07:18)
[2017-08-31] MEDS: VITAMIN D3 1,000 UNITS (CHOLECALCIFEROL) TABLET PO SCH (07:18)
[2017-08-31] MEDS: MULTIVIT W/MINERALS TAB (THERAGRAN M) PO SCH (07:18)
[2017-08-31] MEDS: FERROUS SULF 325 MG (IRON) TAB PO SCH (07:18)
[2017-08-31] MEDS: PANTOPRAZOLE 40 MG (PROTONIX) TAB PO SCH (07:18)
[2017-08-31] MEDS: SENNA W/DOCUSATE (SENOKOT S) TABLET PO SCH ×2 (07:53→21:23)
[2017-08-31] MEDS: POLYETHYLENE GLYCOL 17 GM (MIRALAX) PACK PO SCH ×2 (07:53→21:23)
[2017-08-31] MEDS: inSUlin DETERMIR 1 UNIT/0.01 ML (LEVEMIR) CHARGE PER UNIT SQ SCH ×2 (07:54→21:24)
[2017-08-31] MEDS: RT-ALBUTEROL SULF 2.5 MG/3 ML PRE-MIX VIAL INH SCH ×3 (08:02→20:18)
--- NOTE | 2017-08-31 08:03 | PM & R (SOAP) Progress Note ---
Subjective This was a face to face visit with the patient. Date Seen by Provider: Aug 31, 2017 Time Seen by Provider: 07:45 Subjective/Events-last exam Patient was seen in his room this AM Doing much better Patient Modified Independent for transfers. Review of Systems Musculoskeletal: back pain Objective Physician Exam Last Set of Vital Signs Vital Signs Date Time Temp Pulse Resp B/P (MAP) Pulse Ox O2 Delivery O2 Flow Rate FiO2 08/31/17 07:26 61 08/31/17 05:06 97.4 19 138/61 (86) 96 Room Air 08/29/17 01:22 2.00 Capillary Refill : I&O Intake and Output 08/31/17 00:00 Intake Total 3155 ml Output Total 1000 ml Balance 2155 ml Intake Oral 2155 ml IV Total 1000 ml Output Urine Total 1000 ml Bladder Scan Volume Amount 10 ml # Voids 7 # Bowel Movements 2 General: Alert, Oriented X3, Cooperative, No Acute Distress HEENT: Atraumatic, PERRLA, EOMI, Mucous Memb Moist/[place] Neck: Supple, No JVD Lungs: Clear to Auscultation Heart: Regular Rate Abdomen: Normal Bowel Sounds, Soft, No Tenderness, Other (distended) Extremities: No Edema Neuro: Other (Strength 4-/5 lower limbs 4/5 both upper limbs) Results Lab Data Laboratory Tests 08/28/17 17:06: Glucometer 138H 08/28/17 20:35: Glucometer 115H 08/29/17 05:22: Glucometer 89 08/29/17 11:16: Glucometer 156H 08/29/17 11:17: Prostate Specific Antigen 0.74 08/29/17 16:35: Glucometer 119H 08/29/17 20:21: Glucometer 154H 08/30/17 05:17: White Blood Count 6.4, Red Blood Count 2.38L, Hemoglobin 8.2L, Hematocrit 25L, Mean Corpuscular Volume 104H, Mean Corpuscular Hemoglobin 34, Mean Corpuscular Hemoglobin Concent 33, Red Cell Distribution Width 13.3, Platelet Count 200, Mean Platelet Volume 9.9, Neutrophils (%) (Auto) 68, Lymphocytes (%) (Auto) 16, Monocytes (%) (Auto) 13H, Eosinophils (%) (Auto) 3, Basophils (%) (Auto) 0, Neutrophils # (Auto) 4.3, Lymphocytes # (Auto) 1.0, Monocytes # (Auto) 0.8, Eosinophils # (Auto) 0.2, Basophils # (Auto) 0.0, Sodium Level 138, Potassium Level 4.3, Chloride Level 110H, Carbon Dioxide Level 21, Anion Gap 7, Blood Urea Nitrogen 37H, Creatinine 1.48H, Estimat Glomerular Filtration Rate 48, BUN/ Creatinine Ratio 25, Glucose Level 127H, Calcium Level 8.4L, Phosphorus Level 2.9, Magnesium Level 1.9, Total Bilirubin 0.6, Aspartate Amino Transf (AST/SGOT ) 32, Alanine Aminotransferase (ALT/SGPT) 19, Alkaline Phosphatase 19L, Total Protein 5.2L, Albumin 2.7L 08/30/17 05:27: Glucometer 128H 08/30/17 10:54: Glucometer 220H 08/30/17 15:31: Glucometer 168H 08/30/17 20:19: Glucometer 195H 08/31/17 05:18: Glucometer 121H Assessment/Plan Assessment and Plan Recurrent lumbar stenosis with associated neurogenic claudication and radiculopathy improved s/p decompressive surgery AXEL on CPAP Postop constipation improved Postop anemia on rerplacement Type 2 DM on meds PAF on meds Chronic Kidney D Stage 4 HLP CAD s/p stent and CABG Plan Continue PT/OT Team Conference held yesterday-Please see report for full functional update and POC and ELOS (1) STENOSIS Status: Resolved Co-Morbidities that are continuing to impact the rehab process: (include details ) JACQUES GALLO MD Aug 31, 2017 08:03
[2017-08-31] MEDS: CARVEDILOL 6.25 MG (COREG) TAB PO SCH ×2 (08:21→20:37)
[2017-08-31] MEDS: FUROSEMIDE 40 MG (LASIX) TAB PO SCH (08:21)
[2017-08-31] MEDS: ASPIRIN 81 MG CHEW (CHILDREN'S ASA) PO SCH (08:21)
[2017-08-31] MEDS: HYDROcodone/APAP 7.5 MG/325 MG (LORTAB, LORCET PLUS) TABLET PO PRN ×3 (08:21→20:37)
[2017-08-31] MEDS: SPIRONOLACTONE 25 MG (ALDACTONE) TAB PO SCH (08:21)
--- NOTE | 2017-08-31 10:08 | Progress Note-Hospitalist ---
Subjective HPI/CC On Admission Date Seen by Provider: Aug 31, 2017 Time Seen by Provider: 09:15 Subjective/Events-last exam Patient feels better every day Voiding well without issues Feels like he is retaining fluid and would like an extra Lasix dose today so I did order 40 mg Lasix extra dose today 1500 Eliquis will be started tomorrow Bowels are moving well Pain is under control Review of Systems Cardiovascular: Edema Objective Exam Vital Signs Vital Signs Date Time Temp Pulse Resp B/P (MAP) Pulse Ox O2 Delivery O2 Flow Rate FiO2 08/31/17 09:00 Room Air 08/31/17 08:02 95 08/31/17 07:26 61 08/31/17 05:06 97.4 19 138/61 (86) 08/29/17 01:22 2.00 Capillary Refill : General Appearance: No Apparent Distress, WD/WN, Chronically ill, Other ( improved) Respiratory: Lungs Clear, Normal Breath Sounds Cardiovascular: Regular Rate, Rhythm, No Edema Extremity: Pedal Edema Neurologic/Psychiatric: Alert, Oriented x3, No Motor/Sensory Deficits, Normal Mood/Affect Results/Procedures Lab Patient resulted labs reviewed. Assessment/Plan Assessment and Plan Assess & Plan/Chief Complaint Assessment: Severe debility following lumbar spine surgery due to stenosis Status post urinary retention requiring Swanson catheter administration now discontinued appreciate urology management Postop ileus gradually improving Chronic renal sufficiency usual creatinine is 1.81.9 and was 1.4 3 days ago CAD previous bypass surgery Obstructive sleep apnea Postop anemia Fluid retention Plan: Monitor closely Appreciate urology and general surgery evaluation Continue nebulizer treatments Lasix extra dose Diagnosis/Problems Diagnosis/Problems (1) STENOSIS Status: Resolved (2) Ileus Status: Resolved (3) Urinary retention Status: Resolved (4) Delirium Status: Resolved (5) Volume overload Status: Resolved (6) Corneal abrasion, left Status: Resolved (7) AXEL on CPAP Status: Chronic (8) History of CVA (cerebrovascular accident) Status: Chronic (9) CRI (chronic renal insufficiency) Status: Chronic Qualifiers: Chronic kidney disease stage: stage 3 (moderate) Qualified Codes: N18.3 - Chronic kidney disease, stage 3 (moderate) (10) CAD (coronary artery disease), [place] coronary artery Status: Chronic Qualifiers: [place] vs. transplanted heart: [place] heart Associated angina: without angina Qualified Codes: I25.10 - Atherosclerotic heart disease of [place] coronary artery without angina pectoris (11) Hyperlipemia Status: Chronic (12) Anemia Status: Chronic Qualifiers: Anemia type: iron deficiency Iron deficiency anemia type: unspecified iron deficiency Qualified Codes: D50.9 - Iron deficiency anemia, unspecified (13) Diabetes mellitus Status: Chronic Qualifiers: Diabetes mellitus type: type 2 Diabetes mellitus crnp insulin use: with mcfp use Diabetes mellitus complication status: with circulatory complication Diabetes mellitus complication detail: with other circulatory complications Qualified Codes: E11.59 - Type 2 diabetes mellitus with other circulatory complications; Z79.4 - predatory animal trapper (current) use of insulin (14) Atrial fibrillation Status: Chronic Qualifiers: Atrial fibrillation type: paroxysmal Qualified Codes: I48.0 - Paroxysmal atrial fibrillation (15) Edema Status: Acute Qualifiers: Edema type: localized Qualified Codes: R60.0 - Localized edema Clinical Quality Measures DVT/VTE Risk/Contraindication: Risk Factor Score Per Nursin RFS Level Per Nursing on Admit: 4+=Very High HECTOR MORAN DO Aug 31, 2017 10:08
--- NOTE | 2017-08-31 10:51 | Occupational Ther Daily Note ---
OT Current Status-Daily Note Subjective Pt seen in room, up in recliner, agreeable to OT. No pain mentioned. Appearance Alert, cooperative, looking forward to DC on Monday, hopefully Mental Status/Objective Functional [place] Measure 0=Not Assessed/NA 4=Minimal Assistance 1=Total Assistance 5=Supervision or Setup 2=Maximal Assistance 6=Modified [place] 3=Moderate Assistance 7=Complete [place] ADL-Treatment After covering incision and IV site, pt walked without help to bathroom (back brace was on). He was able to get in and out of shower mod I, including getting on and off shower bench. He took back brace off himself and was able to put it back on after shower. He washed and dried all parts, seated on shower bench, turned water on and off, retrieved towel. After shower, he donned t shirt with setup and briefs/shorts with min assist to pull pants up over L hip. Pt stood at sink to shave and brush teeth mod I, FWW but was fatigued afterwards. He walked safely back to recliner, Discussed amount of care provided with pt and his and they have no concerns. Functional [place] Measure 0=Not Assessed/NA 4=Minimal Assistance 1=Total Assistance 5=Supervision or Setup 2=Maximal Assistance 6=Modified [place] 3=Moderate Assistance 7=Complete IndependenceIRFPAI Quality Coding Scale 6 Independent with activity with or without an assistive device 5 Patient requires set up or clean up by helper. Patient completes activity by themselves 4 Supervision or touching assist (CGA). [place] provide cues , steadying assist 3 The helper provides less than half the effort to complete the activity 2 The helper provides more than half the effort to complete the activity 1 Dependent. The helper does all the effort to complete an activity 7 Patient refused to complete or attempt activity 9 The patient did not perform the activity before the current illness or injury 88 Not attempted due to Medical conditions or safety concerns Grooming (FIM): 6 (Mod I, standing at sink with FWW to shave and brush teeth. Washed face and hands in shower) Bathing (FIM): 6 (Washed and dried all parts. Turned water on and off and retrieved towel. Shower bench, grab bar, hand held shower, long handled sponge) Upper Body (FIM): 5 (Doffed shirt indep but donned shirt with setup) Lower Body Dressing (FIM): 4 (Pt was able to get pants on over feet with dressing stick but neeed a little help to pull them up over L hip, under back brace, due to decreased sensation and coordination L hand. ) Shower Transfer(FIM): 6 (Shower bench, grab bar, FWW) Education OT Patient Education: Instructions to caregiver, Progress toward Goal/Update tx plan, Purpose of tx/functional activities, Safety issues Teaching Recipient: Patient, Family Teaching Methods: Discussion Response to Teaching: Verbalize Understanding, Return Demonstration OT Short Term Goals Short Term Goals Time Frame: Sep 04, 2017 Lower Body Dressing(FIM): 5 Toilet/Commode Transfer(FIM): 5 Additional Short Term Goals: 1-Demonstrate ADL Tasks, 2-Verbalize Understanding , 3-ImproveStrength/Narciso 1=Demonstrate adherence to instructed precautions during ADL tasks. 2=Patient will verbalize/demonstrate understanding of assistive devices/ modifications for ADL. 3=Patient will improve strength/tolerance for activity to enable patient to perform ADL's. OT Skilled Nursing Goals Farmworker [employer] Goals Time Frame: Sep 08, 2017 Eating (FIM): 7 Eating (QC): 6 Groomin Oral Hygiene (QC): 6 Bathing(FIM): 6 Shower/Bathe Self (QC): 6 Upper Body Dressing(FIM): 6 Upper Body Dressing (QC): 6 Lower Body Dressing(FIM): 6 Lower Body Dressing (QC): 6 On/Off Footwear (QC): 6 Toileting(FIM): 6 Toileting Hygiene (QC): 6 Toilet/Commode Transfer(FIM): 6 Toilet/Commode Transfer (QC): 6 Shower Transfer(FIM): 6 Additional Goals: 1-Demonstrate ADL Tasks, 2-Verbalize Understanding, 3- ImproveStrength/Narciso 1=Demonstrate adherence to instructed precautions during ADL tasks. 2=Patient will verbalize/demonstrate understanding of assistive devices/ modifications for ADL. 3=Patient will improve strength/tolerance for activity to enable patient to perform ADL's. OT Education/Plan Problem List/Assessment Pt would benefit from skilled OT to increase his independence in basic self care to allow him to safely return home with family Discharge Recommendations Plan/Recommendations: Continue POC Treatment Plan/Plan of Care Patient would benefit from OT for education, treatment and training to promote independence in ADL's, mobility, safety and/or upper extremity function for ADL' s. Plan of Care: ADL Retraining, Functional Mobility, Group Exercise/Act as Ind ( education, exercise, funct activity, activity tolerance, socialization), UE Funct Exercise/Act, UE Neuromus Re-Ed/Coord Treatment Duration: Sep 08, 2017 Frequency: At least 5 of 7 days/Wk (IRF) Estimated Hrs Per Day: 1.5 hours per day Agreement: Yes Rehab Potential: Good Time/GCodes Start Time: 08:30 Stop Time: 09:30 Total Time Billed (hr/min): 60 Billed Treatment Time visit, 60 minutes ADL GRANT FARIAS OT Aug 31, 2017 10:51
--- NOTE | 2017-08-31 11:08 | Progress Note-Urology ---
Progress Note-Urology Progress Notes/Assess & Plan Progress/Assessment & Plan CONTINUES VOIDING WELL. KEEP ON DOXAZOCIN. FOLLOW UP OFFICE IN 4 WEEKS Final Diagnosis URINE RETENTION (RESOLVED) YOLETTE CARY MD Aug 31, 2017 11:08 am
--- NOTE | 2017-08-31 12:05 | Physical Therapy Daily Note ---
PT Daily Note-Current Subjective Tired but feels a little better Pain Location: Medial Location Body Site: Back Pain Description: Ache Mental Status Patient Orientation: Normal For Age Attachments: Other-See Comments (back brace) Transfers Functional [place] Measure 0=Not Assessed/NA 4=Minimal Assistance 1=Total Assistance 5=Supervision or Setup 2=Maximal Assistance 6=Modified [place] 3=Moderate Assistance 7=Complete IndependenceIRFPAI Quality Coding Scale 6 Independent with activity with or without an assistive device 5 Patient requires set up or clean up by helper. Patient completes activity by themselves 4 Supervision or touching assist (CGA). [place] provide cues , steadying assist 3 The helper provides less than half the effort to complete the activity 2 The helper provides more than half the effort to complete the activity 1 Dependent. The helper does all the effort to complete an activity 7 Patient refused to complete or attempt activity 9 The patient did not perform the activity before the current illness or injury 88 Not attempted due to Medical conditions or safety concerns Transfers (B, C, W/C) (FIM): 6 Scootin Rollin Supine to/from Sit: 6 Sit to/from Stand: 6 pt. needs time and is slow at TRFs. needs higher sitting surface for ease of sit to stand TRF Weight Bearing Right Lower Extremity: Right Weight Bearing/Tolerated Left Lower Extremity: Left Weight Bearing/Tolerated Gait Training Does the Patient Walk?: Yes Gait (FIM): 6 Distance (FIM): 3=150 ft (200x2) Gait Level of Assist: 6 Gait Persons Needed: 0 Gait Assistive Device: FWW needs assist for back brace, still flexed over FWW, Exercises Supine Ex: Ankle pumps, Quad Set, Rolling, Glut sets, Heel Slides, Short Arc Quads, Scooting, Hip abd/add Supine Reps: 15 Standing: Hip Abduction, Hamstring curls, Heel/toe raises, Marching, Mini squats Standing Reps: 15 Assessment Current Status: Good Progress up in recliner after Rx, mabry at hand PT Short Term Goals Short Term Goals Time Frame: Sep 01, 2017 Gait (FIM): 5 PT Assisted Goals Dope Maintenance Worker Goals PT Assisted Goals Time Frame: Sep 06, 2017 Transfers (B,C,W/C) (FIM): 6 Sit to Lying (QC): 6 Lying-Sitting on Side/Bed(QC): 6 Sit to Stand (QC): 6 Rollin Roll Left to Right (QC): 6 Chair/Ica-hl-Smtkf Xfer(QC): 6 Car Transfer (QC): 6 Does the Patient Walk: Yes Gait (FIM): 6 Gait distance (FIM): 3=150 ft Walk 10 feet (QC): 6 Walk 10ft-Uneven Surface(QC): 6 Walk 50ft with 2 Turns (QC): 6 Walk 150 ft (QC): 6 Gait Assistive Device: FWW Does the Pt use WC or Scooter?: No Stairs (FIM): 5 # of Steps: 4 1 Step (curb) (QC): 6 4 Steps (QC): 6 12 Steps (QC): 88 Picking up an Object (QC): 88 PT Plan Treatment/Plan Treatment Plan: Continue Plan of Care Treatment Plan: Bed Mobility, Education, Functional Activity Narciso, Functional Strength, Group Therapy, Gait, Safety, Therapeutic Exercise, Transfers Treatment Duration: Sep 06, 2017 Frequency: At least 5 of 7 days/Wk (IRF) Estimated Hrs Per Day: 1.5 hours per day Patient and/or Family Agrees t: Yes Safety Risks/Education Patient Education: Gait Training, Transfer Techniques, Correct Positioning, Safety Issues Teaching Recipient: Patient Teaching Methods: Demonstration, Discussion Response to Teaching: Verbalize Understanding, Return Demonstration Time/GCodes Time In: 1100 Time Out: 1200 Total Billed Treatment Time: 60 Total Billed Treatment 1,FA20m,EX25m,GT15m G Codes Necessary: MITCHELL Witt NET MOBILE DEVELOPER Aug 31, 2017 12:05
--- NOTE | 2017-08-31 14:50 | Occupational Ther Daily Note ---
OT Current Status-Daily Note Subjective Pt alert, sitting in recliner. present in room. Agrees to therapy. Mental Status/Objective Patient Orientation: Person, Place, Time, Situation Functional [place] Measure 0=Not Assessed/NA 4=Minimal Assistance 1=Total Assistance 5=Supervision or Setup 2=Maximal Assistance 6=Modified [place] 3=Moderate Assistance 7=Complete [place] ADL-Treatment Pt given toilet tongs and educated on use. Pt verbalized understanding of tongs. Pt requires assist to don back brace, able to doff by self. Functional [place] Measure 0=Not Assessed/NA 4=Minimal Assistance 1=Total Assistance 5=Supervision or Setup 2=Maximal Assistance 6=Modified [place] 3=Moderate Assistance 7=Complete IndependenceIRFPAI Quality Coding Scale 6 Independent with activity with or without an assistive device 5 Patient requires set up or clean up by helper. Patient completes activity by themselves 4 Supervision or touching assist (CGA). [place] provide cues , steadying assist 3 The helper provides less than half the effort to complete the activity 2 The helper provides more than half the effort to complete the activity 1 Dependent. The helper does all the effort to complete an activity 7 Patient refused to complete or attempt activity 9 The patient did not perform the activity before the current illness or injury 88 Not attempted due to Medical conditions or safety concerns Other Treatment Pt completed isometric exercises against gravity 3 sets 10 reps. Pt educated on wt bearing to decrease tightness in L hand. ROM and massage to L shldr to increase AROM and decrease stiffness. After therapy, pt sitting in recliner with call light/phone reach. All needs met in room. Education OT Patient Education: Use of adapted equipment Teaching Recipient: Patient, Family Teaching Methods: Demonstration, Discussion Response to Teaching: Verbalize Understanding OT Short Term Goals Short Term Goals Time Frame: Sep 04, 2017 Lower Body Dressing(FIM): 5 Toilet/Commode Transfer(FIM): 5 Additional Short Term Goals: 1-Demonstrate ADL Tasks, 2-Verbalize Understanding , 3-ImproveStrength/Narciso 1=Demonstrate adherence to instructed precautions during ADL tasks. 2=Patient will verbalize/demonstrate understanding of assistive devices/ modifications for ADL. 3=Patient will improve strength/tolerance for activity to enable patient to perform ADL's. OT Residential Goals [employer] Admin Goals Time Frame: Sep 08, 2017 Eating (FIM): 7 Eating (QC): 6 Groomin Oral Hygiene (QC): 6 Bathing(FIM): 6 Shower/Bathe Self (QC): 6 Upper Body Dressing(FIM): 6 Upper Body Dressing (QC): 6 Lower Body Dressing(FIM): 6 Lower Body Dressing (QC): 6 On/Off Footwear (QC): 6 Toileting(FIM): 6 Toileting Hygiene (QC): 6 Toilet/Commode Transfer(FIM): 6 Toilet/Commode Transfer (QC): 6 Shower Transfer(FIM): 6 Additional Goals: 1-Demonstrate ADL Tasks, 2-Verbalize Understanding, 3- ImproveStrength/Narciso 1=Demonstrate adherence to instructed precautions during ADL tasks. 2=Patient will verbalize/demonstrate understanding of assistive devices/ modifications for ADL. 3=Patient will improve strength/tolerance for activity to enable patient to perform ADL's. OT Education/Plan Problem List/Assessment Pt would benefit from skilled OT to increase his independence in basic self care to allow him to safely return home with family Discharge Recommendations Plan/Recommendations: Continue POC Treatment Plan/Plan of Care Patient would benefit from OT for education, treatment and training to promote independence in ADL's, mobility, safety and/or upper extremity function for ADL' s. Plan of Care: ADL Retraining, Functional Mobility, Group Exercise/Act as Ind ( education, exercise, funct activity, activity tolerance, socialization), UE Funct Exercise/Act, UE Neuromus Re-Ed/Coord Treatment Duration: Sep 08, 2017 Frequency: At least 5 of 7 days/Wk (IRF) Estimated Hrs Per Day: 1.5 hours per day Agreement: Yes Rehab Potential: Good Time/GCodes Start Time: 13:30 Stop Time: 14:00 Total Time Billed (hr/min): 30 Billed Treatment Time 1 visit-FA 1 (15 min) EX 1 (15 min) BRAYAN BERGER Aug 31, 2017 14:50
[2017-08-31] MEDS ORDERED: FUROSEMIDE 40 MG (LASIX) TAB PO NR (15:00)
--- NOTE | 2017-08-31 15:20 | Physical Therapy Daily Note ---
PT Daily Note-Current Subjective Agreeable. Feels as though he will be ready to go home on Monday. Dr is progressing his diet. Transfers Functional [place] Measure 0=Not Assessed/NA 4=Minimal Assistance 1=Total Assistance 5=Supervision or Setup 2=Maximal Assistance 6=Modified [place] 3=Moderate Assistance 7=Complete IndependenceIRFPAI Quality Coding Scale 6 Independent with activity with or without an assistive device 5 Patient requires set up or clean up by helper. Patient completes activity by themselves 4 Supervision or touching assist (CGA). [place] provide cues , steadying assist 3 The helper provides less than half the effort to complete the activity 2 The helper provides more than half the effort to complete the activity 1 Dependent. The helper does all the effort to complete an activity 7 Patient refused to complete or attempt activity 9 The patient did not perform the activity before the current illness or injury 88 Not attempted due to Medical conditions or safety concerns Transfers (B, C, W/C) (FIM): 6 Sit to/from Stand: 6 Weight Bearing Right Lower Extremity: Right Weight Bearing/Tolerated Left Lower Extremity: Left Weight Bearing/Tolerated Gait Training Does the Patient Walk?: Yes Gait (FIM): 6 Distance (FIM): 3=150 ft Distance: 150 ft x 2 Gait Assistive Device: FWW Back brace in situ. Stair Training Stair Training: Handrails/: 2 handrails Stairs (FIM): 5 #of Steps: 8 Stairs: Pattern: Step to mod indep up/down 8 steps Assessment Current Status: Good Progress Pt 's functional mobiltiy is progressing and he is meeting PT goals. PT Short Term Goals Short Term Goals Time Frame: Sep 01, 2017 Gait (FIM): 5 (met) PT Usp Goals Usp Goals PT Usp Goals Time Frame: Sep 06, 2017 Transfers (B,C,W/C) (FIM): 6 Sit to Lying (QC): 6 Lying-Sitting on Side/Bed(QC): 6 Sit to Stand (QC): 6 Rollin Roll Left to Right (QC): 6 Chair/Tmw-hj-Crrmr Xfer(QC): 6 Car Transfer (QC): 6 Does the Patient Walk: Yes Gait (FIM): 6 Gait distance (FIM): 3=150 ft Walk 10 feet (QC): 6 Walk 10ft-Uneven Surface(QC): 6 Walk 50ft with 2 Turns (QC): 6 Walk 150 ft (QC): 6 Gait Assistive Device: FWW Does the Pt use WC or Scooter?: No Stairs (FIM): 5 # of Steps: 4 1 Step (curb) (QC): 6 4 Steps (QC): 6 12 Steps (QC): 88 Picking up an Object (QC): 88 PT Plan Problem List Problem List: Activity Tolerance, Functional Strength, Safety, Balance, Gait, Transfer, Bed Mobility Treatment/Plan Treatment Plan: Continue Plan of Care Treatment Plan: Bed Mobility, Education, Functional Activity Narciso, Functional Strength, Group Therapy, Gait, Safety, Therapeutic Exercise, Transfers Treatment Duration: Sep 06, 2017 Frequency: At least 5 of 7 days/Wk (IRF) Estimated Hrs Per Day: 1.5 hours per day Patient and/or Family Agrees t: Yes Safety Risks/Education Patient Education: Steps Teaching Recipient: Patient Teaching Methods: Demonstration, Discussion Response to Teaching: Reinforcement Needed Time/GCodes Time In: 1430 Time Out: 1500 Total Billed Treatment Time: 30 Total Billed Treatment visit GT 30 BRAYAN STAFFORD PT Aug 31, 2017 15:20
[2017-08-31 16:12] VITALS: BP 144/58
--- NOTE | 2017-08-31 16:48 | Individualized Plan of Care ---
Individualized Plan of Care Rehab Nursing IPOC Order Admission Date Aug 28, 2017 at 12:15 Current Orders Orders Pt Evaluate/Treat Request (08/28/17 10:54) Request Ot Evaluate & Treat (08/28/17 10:54) Request For Cognitive Services (08/28/17 10:54) Accucheck Achs ACHS (08/28/17 14:16) Incentive Spirometry (Nursing) Q2H (08/28/17 14:16) Initiate Admission Nursing Pro .admission (08/28/17 14:16) Notify Physician: (08/28/17 14:16) Nursing Communication (Order) (08/28/17 14:16) Oxygen-Administer 07,19 (08/28/17 14:16) Sequential Compression Device 08,20 (08/28/17 14:16) Fazal Hose 09,21 (08/28/17 14:16) Telemetry (08/28/17 14:16) Turn, Cough, And Deep Breathe (08/28/17 14:16) Up With Assistance As Tolerate (08/28/17 14:16) Weight Bearing Status (08/28/17 14:16) Albuterol Pre-Mix Nebs (Rt) (Proventil (08/28/17 15:00) Aspirin Chewable Tablet (Baby Aspirin Ch (08/29/17 09:00) Atorvastatin Tablet (Lipitor Tablet) (08/28/17 21:00) Baclofen Tablet (Lioresal Tablet) (08/28/17 14:30) Carvedilol Tablet (Coreg Tablet) (08/28/17 21:00) Docusate Sodium Capsule (Colace Capsule) (08/28/17 21:00) Bisacodyl Tablet (Dulcolax Tablet) (08/28/17 14:30) Ferrous Sulfate Tablet (Feosol Tablet) (08/29/17 07:00) Furosemide Tablet (Lasix Tablet) (08/29/17 09:00) Isosorbide Mononitrate Tablet (Imdur Tab (08/29/17 06:30) Lactated Ringers (Lr 1000 Ml Iv Solution (08/28/17 14:30) Hydrocodone/Apap 5/325 Tablet (Lortab 5 (08/28/17 14:30) Mineral Oil/Petrolatum Ophth O (Lacri-Amy (08/28/17 16:00) Therapeutic Multivitamin Tab (Vitamins, (08/29/17 07:00) Nitroglycerin Ointment (Nitrobid Ointme (08/28/17 14:30) Nitroglycerin 0.4 Mg Btl 25's (Nitrostat (08/28/17 14:30) Insulin Aspart (Novolog) (Novolog (Charg (08/28/17 16:00) Pantoprazole Tablet (Protonix Tablet) (08/29/17 07:00) Polyethylene Glycol Powder Pkt (Miralax (08/28/17 21:00) Senna S Tablet (Senokot S Tablet) (08/28/17 21:00) Spironolactone Tablet (Aldactone Tablet) (08/29/17 09:00) Acetaminophen Tablet/Caplet (Tylenol T (08/28/17 14:30) Ondansetron Injection (Zofran Injectio (08/28/17 14:30) Doxazosin Tablet (Cardura Tablet) (08/28/17 21:00) Insulin Determir (Per Unit) (Levemir (Pe (08/28/17 21:00) Morphine Injection (Morphine Injection (08/28/17 14:30) Risperidone Tablet (Risperdal Tablet) (08/28/17 21:00) Consult Hospitalist (08/28/17 14:16) Consult Physician (08/28/17 14:16) Consult Urology (08/28/17 14:16) Svn Small Volume Nebulizer (08/28/17 14:16) Iv Start Anesthesia (Order) (08/28/17 14:16) Oxygen Delivery Set Up (08/28/17 14:16) Telemetry Nursing Assessment ( (08/28/17 14:16) Svn Small Volume Nebulizer (08/28/17 14:16) Patient Visit (08/28/17 ) Pt Eval Moderate Complexity (08/28/17 ) Patient Visit (08/28/17 ) Gait Training, Ea 15 Min (08/28/17 ) Patient Visit (08/28/17 ) Speech Sound Lang Comp (08/28/17 ) Patient Visit (08/28/17 ) Patient Visit (08/28/17 ) Exercise Therap, Ea 15 Min (08/28/17 ) Patient Visit (08/28/17 ) Admission Arrival Bed Request (08/28/17 15:41) [place] 3 Capsule (Fish Oil Capsule) (08/28/17 17:00) Ezetimibe Tablet (Zetia Tablet) (08/28/17 21:00) Fenofibrate,Micronized Capsule (Lofibra (08/28/17 21:00) Cholecalciferol Capsule/Tablet (Vitamin (08/29/17 07:00) Admission-Acute Rehab Unit (08/28/17 15:53) Albuterol Pre-Mix Nebs (Rt) (Proventil (08/28/17 15:37) Ondansetron Oral Dissolve Tab (Zofran (08/28/17 18:00) Ondansetron Oral Dissolve Tab (Zofran (08/28/17 18:02) Senna S Tablet (Senokot S Tablet) (08/28/17 21:00) Polyethylene Glycol Powder Pkt (Miralax (08/28/17 21:00) Ambulate TID (08/28/17 20:26) Sequential Compression Device 08,20 (08/28/17 20:26) Dvt/Vte Risk - Notifiy Physici 08 (08/28/17 20:26) 1/2 Ns W/Kcl 20 Meq/L (0.45% Sodium Chlo (08/28/17 21:15) 1/2 Ns W/Kcl 20 Meq/L (0.45% Sodium Chlo (08/28/17 21:35) Albuterol Pre-Mix Nebs (Rt) (Proventil (08/29/17 14:00) Cbc With Automated Diff (08/30/17 06:00) Comprehensive Metabolic Panel (08/30/17 06:00) Aspirin Tablet (Aspirin Tablet) (08/29/17 09:30) Aspirin Tablet (Aspirin Tablet) (08/30/17 09:00) Aspirin Chewable Tablet (Baby Aspirin Ch (08/29/17 09:30) Aspirin Chewable Tablet (Baby Aspirin Ch (08/30/17 09:00) Psa Screen (08/29/17 10:07) Bladder Scan (08/29/17 10:31) Clear Liquid (08/29/17 Lunch) Patient Visit (08/29/17 ) Functional Activities, Ea 15 (08/29/17 ) Exercise Therap, Ea 15 Min (08/29/17 ) Gait Training, Ea 15 Min (08/29/17 ) Hydrocodone/Apap 7.5/325 Tab (Lortab 7. (08/29/17 16:45) Acetaminophen Tablet/Caplet (Tylenol T (08/29/17 16:45) Magnesium (08/30/17 05:00) Phosphorus (08/30/17 05:00) Abdomen, Flat & Upright/Decub (08/30/17 06:00) Patient Visit (08/30/17 ) Exercise Therap, Ea 15 Min (08/30/17 ) Functional Activities, Ea 15 (08/30/17 ) Gait Training, Ea 15 Min (08/30/17 ) Therapeutic, Group (08/30/17 ) Furosemide Tablet (Lasix Tablet) (08/31/17 15:00) Cbc With Automated Diff (09/01/17 06:00) Comprehensive Metabolic Panel (09/01/17 06:00) Fazal Atkinson (08/31/17 10:40) Follow-Up Appointment D/C (08/31/17 11:08) Patient Visit (08/31/17 ) Functional Activities, Ea 15 (08/31/17 ) Exercise Therap, Ea 15 Min (08/31/17 ) Gait Training, Ea 15 Min (08/31/17 ) General/Regular (08/31/17 Dinner) Patient Visit (08/31/17 ) Gait Training, Ea 15 Min (08/31/17 ) Other Nursing Orders: Monitor for any further N/V obstipation/constipation or urinary retention PT IPOC Problem List: Activity Tolerance, Functional Strength, Safety, Balance, Gait, Transfer, Bed Mobility Treatment Plan: Continue Plan of Care Bed Mobility, Education, Functional Activity Narciso, Functional Strength, Group Therapy, Gait, Safety, Therapeutic Exercise, Transfers Treatment Duration: Sep 06, 2017 Frequency: At least 5 of 7 days/Wk (IRF) Estimated Hrs Per Day: 1.5 hours per day OT IPOC Problems: Decreased Activ Tolerance, Decreased UE Strength, Dependent Transfers , Impaired Self-Care Skills, Restricted Funct UE ROM (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) OT Treatment, Training and Edu: Yes OT Problems Pt would benefit from skilled OT to increase his independence in basic self care to allow him to safely return home with family Plan of Care: ADL Retraining, Functional Mobility, Group Exercise/Act as Ind ( education, exercise, funct activity, activity tolerance, socialization), UE Funct Exercise/Act, UE Neuromus Re-Ed/Coord Treatment Duration: Sep 08, 2017 Frequency: At least 5 of 7 days/Wk (IRF) Estimated Hrs Per Day: 1.[address] IPOC Speech Therapy Treatment Plan: Discontinue ST Treatment Duration: Aug 31, 2017 Frequency: Modified Program (IRF) (No ST warranted.) Estimated Hrs Per Day: Other (No ST warranted.) Boiler House Inspector/Case Mgmt Boiler House Inspector/Case Managemen: Discharge Planning, Patient/Family Counseling Dietitian/[employer] Manager Dietitian/[employer] Manager to monitor nutritional status and make changes and/or recommendations as needed and work with speech pathology on dietary upgrades as the occur. Physician IPOC Medical Issues being managed closely and that require the 24 hour availability of a physician: Postop ileus/constipation AXEL Postop anemia Type 2 DM PAF Chronic K D Stage 4 HLP CAD s/p stent and cabg [facility] code 03.9 Etiologic DX Lumbar SS Medical Issues: Bowel/Bladder Function, DVT Prophylaxis, Falls Precautions, Fluid/Electrolyte/Nutrition Balance, Infection Protection, Pain Management, Weight Bearing Precautions, Wound Care, Other (List) (as per above) Brief Synthesis of Preadmission Screen, Post-Admission Evaluation, and Therapy Evaluations:67 yo male s/p lumbar spine surgery who had postop complications of Postop ileus and constipation as well as Anemia who was referred to IRU for ongoing care and therapies with goal of returning home with Spouse Has comorbidities as per above Has progressed well and discharge planned for 09-02-17 Medical Prognosis: good Anticipated Length of Stay: 09-02-17 Modified Independent to supervsion for adls and mobility skills Anticipated d/c Destination: Home with spouse and [facility] JACQUES GALLO MD Aug 31, 2017 16:48
--- NOTE | 2017-08-31 19:16 | Progress Note ---
Subjective Date Seen by Provider: Aug 31, 2017 Time Seen by Provider: 14:25 Subjective/Events-last exam passing flatus and multiple bowel movements. abdomen feeling better. not having any nausea, wanting food. denies fever sweats chills shortness of breath or chest pain. Objective Exam Vital Signs Date Time Temp Pulse Resp B/P (MAP) Pulse Ox O2 Delivery O2 Flow Rate FiO2 08/31/17 16:12 96.9 74 16 144/58 (86) 93 Room Air 08/31/17 15:12 96 Room Air 08/31/17 13:08 68 08/31/17 09:00 Room Air 08/31/17 08:02 95 Room Air 08/31/17 07:26 61 08/31/17 05:06 97.4 66 19 138/61 (86) 96 Room Air 08/31/17 01:00 75 08/30/17 20:20 NIV CPAP 08/30/17 20:04 92 Room Air I & O 08/31/17 07:00 Intake Total 2525 ml Output Total 1300 ml Balance 1225 ml Capillary Refill : General Appearance: No Apparent Distress, WD/WN, Chronically ill, Other ( improved) HEENT: PERRL/EOMI Respiratory: Lungs Clear, Normal Breath Sounds Cardiovascular: Regular Rate, Rhythm Gastrointestinal: distended (no signficant tenderness, distention about the same as yesterday ) Extremity: Pedal Edema Neurologic/Psychiatric: Alert, Oriented x3, No Motor/Sensory Deficits, Normal Mood/Affect Skin: Warm/Dry Lymphatic: No Adenopathy Results Lab Laboratory Tests 08/30/17 20:19: Glucometer 195H 08/31/17 05:18: Glucometer 121H 08/31/17 11:07: Glucometer 167H 08/31/17 16:10: Glucometer 184H Assessment/Plan Assessment/Plan Assessment/Plan Lumbar stenosis with radiculopathy- status post L3 to 5 TLIF/PSF CAD Acute on chronic renal insufficiency Acute on chronic anemia Urinary retention Post operative ileus bowel functioning advance diet still distended but slowly improving will follow Clinical Quality Measures DVT/VTE Risk/Contraindication: Risk Factor Score Per Nursin RFS Level Per Nursing on Admit: 4+=Very High ELVIA ADAMS DO Aug 31, 2017 19:16
[2017-08-31] MEDS: FENOFIBRATE 134 MG (LOFIBRA) CAPSULE PO SCH (20:37)
[2017-08-31] MEDS: doxAzosin 4 MG (CARDURA) TAB PO SCH (20:37)
[2017-08-31] MEDS: eZETimibe 10 MG (ZETIA) TABLET PO SCH (20:37)
[2017-08-31] MEDS: ATORVASTATIN 80 MG (LIPITOR) TABLET PO SCH (20:37)
[2017-09-01 05:14] VITALS: BP 121/67
[2017-09-01] MEDS: inSUlin ASPART (NovoLOG) 1 UNIT/0.01 ML (CHARGE PER UNIT) SC SCH ×4 (06:04→21:06)
[2017-09-01] MEDS: VITAMIN D3 1,000 UNITS (CHOLECALCIFEROL) TABLET PO SCH (06:31)
[2017-09-01] MEDS: PANTOPRAZOLE 40 MG (PROTONIX) TAB PO SCH (06:31)
[2017-09-01] MEDS: FERROUS SULF 325 MG (IRON) TAB PO SCH (06:31)
[2017-09-01] MEDS: MULTIVIT W/MINERALS TAB (THERAGRAN M) PO SCH (06:31)
[2017-09-01] MEDS: OMEGA 3 (FISH OIL) 1000 MG CAP PO SCH ×2 (06:31→16:52)
[2017-09-01] MEDS: ISOSORBIDE MONONITRATE 60 MG (IMDUR) TAB PO SCH (06:31)
[2017-09-01] MEDS: RT-ALBUTEROL SULF 2.5 MG/3 ML PRE-MIX VIAL INH SCH ×3 (06:36→18:36)
[2017-09-01 08:08] LABS: BASOPHILS % (AUTO) 0 % (0-10); EOSINOPHILS # (AUTO) 0.2 10^3/uL (0.0-0.3); EOSINOPHILS % (AUTO) 3 % (0-10); HEMATOCRIT 25 % (40-54); LYMPHOCYTES # (AUTO) 1.1 X 10^3 (1.0-4.0); LYMPHOCYTES % (AUTO) 16 % (12-44); MEAN CORPUSCULAR HEMOGLOBIN 34 PG (25-34); MEAN CORPUSCULAR HGB CONC 32 G/DL (32-36); MEAN CORPUSCULAR VOLUME 104 FL (80-99); MONOCYTES # (AUTO) 0.7 X 10^3 (0.0-1.0); MONOCYTES % (AUTO) 10 % (0-12); NEUTROPHILS % (AUTO) 71 % (42-75); PLATELET COUNT 234 10^3/uL (130-400); RED BLOOD COUNT 2.38 10^6/uL (4.35-5.85)
[2017-09-01] MEDS: FUROSEMIDE 40 MG (LASIX) TAB PO SCH (08:08)
[2017-09-01] MEDS: APIXABAN 5 MG (ELIQUIS) TABLET PO SCH ×2 (08:08→21:06)
[2017-09-01] MEDS: ASPIRIN 81 MG CHEW (CHILDREN'S ASA) PO SCH (08:08)
[2017-09-01] MEDS: HYDROcodone/APAP 7.5 MG/325 MG (LORTAB, LORCET PLUS) TABLET PO PRN ×3 (08:08→21:07)
[2017-09-01] MEDS: CARVEDILOL 6.25 MG (COREG) TAB PO SCH ×2 (08:08→21:07)
[2017-09-01] MEDS: SPIRONOLACTONE 25 MG (ALDACTONE) TAB PO SCH (08:08)
[2017-09-01] MEDS: inSUlin DETERMIR 1 UNIT/0.01 ML (LEVEMIR) CHARGE PER UNIT SQ SCH ×2 (08:10→21:04)
[2017-09-01] MEDS: SENNA W/DOCUSATE (SENOKOT S) TABLET PO SCH ×2 (08:10→19:41)
[2017-09-01] MEDS: POLYETHYLENE GLYCOL 17 GM (MIRALAX) PACK PO SCH ×2 (08:10→19:41)
--- NOTE | 2017-09-01 08:20 | PM & R (SOAP) Progress Note ---
Subjective This was a face to face visit with the patient. Date Seen by Provider: Sep 01, 2017 Time Seen by Provider: 07:45 Subjective/Events-last exam Patient was seen in his room this AM Patient Modified Independent for transfers All set for discharge tomorrow.Has progressed well IVFS d/cd Objective Physician Exam Last Set of Vital Signs Vital Signs Date Time Temp Pulse Resp B/P (MAP) Pulse Ox O2 Delivery O2 Flow Rate FiO2 09/01/17 06:38 95 Room Air 2.00 09/01/17 05:14 97.1 72 19 121/67 (85) Capillary Refill : I&O Intake and Output 09/01/17 00:00 Intake Total 2450 ml Output Total 300 ml Balance 2150 ml Intake Oral 1100 ml IV Total 1350 ml Output Urine Total 300 ml # Voids 6 # Bowel Movements 6 General: Alert, Oriented X3, Cooperative, No Acute Distress HEENT: Atraumatic, PERRLA, EOMI, Mucous Memb Moist/[place] Neck: Supple, No JVD Lungs: Clear to Auscultation Heart: Regular Rate Abdomen: Normal Bowel Sounds, Soft, No Tenderness, Other (distended) Extremities: No Edema Neuro: Other (Strength 4-/5 lower limbs 4/5 both upper limbs) Results Lab Data Laboratory Tests 08/29/17 11:16: Glucometer 156H 08/29/17 11:17: Prostate Specific Antigen 0.74 08/29/17 16:35: Glucometer 119H 08/29/17 20:21: Glucometer 154H 08/30/17 05:17: White Blood Count 6.4, Red Blood Count 2.38L, Hemoglobin 8.2L, Hematocrit 25L, Mean Corpuscular Volume 104H, Mean Corpuscular Hemoglobin 34, Mean Corpuscular Hemoglobin Concent 33, Red Cell Distribution Width 13.3, Platelet Count 200, Mean Platelet Volume 9.9, Neutrophils (%) (Auto) 68, Lymphocytes (%) (Auto) 16, Monocytes (%) (Auto) 13H, Eosinophils (%) (Auto) 3, Basophils (%) (Auto) 0, Neutrophils # (Auto) 4.3, Lymphocytes # (Auto) 1.0, Monocytes # (Auto) 0.8, Eosinophils # (Auto) 0.2, Basophils # (Auto) 0.0, Sodium Level 138, Potassium Level 4.3, Chloride Level 110H, Carbon Dioxide Level 21, Anion Gap 7, Blood Urea Nitrogen 37H, Creatinine 1.48H, Estimat Glomerular Filtration Rate 48, BUN/ Creatinine Ratio 25, Glucose Level 127H, Calcium Level 8.4L, Phosphorus Level 2.9, Magnesium Level 1.9, Total Bilirubin 0.6, Aspartate Amino Transf (AST/SGOT ) 32, Alanine Aminotransferase (ALT/SGPT) 19, Alkaline Phosphatase 19L, Total Protein 5.2L, Albumin 2.7L 08/30/17 05:27: Glucometer 128H 08/30/17 10:54: Glucometer 220H 08/30/17 15:31: Glucometer 168H 08/30/17 20:19: Glucometer 195H 08/31/17 05:18: Glucometer 121H 08/31/17 11:07: Glucometer 167H 08/31/17 16:10: Glucometer 184H 08/31/17 20:16: Glucometer 143H 09/01/17 05:25: Glucometer 121H 09/01/17 08:00: White Blood Count 7.0, Red Blood Count 2.38L, Hemoglobin 8.0L, Hematocrit 25L, Mean Corpuscular Volume 104H, Mean Corpuscular Hemoglobin 34, Mean Corpuscular Hemoglobin Concent 32, Red Cell Distribution Width 13.0, Platelet Count 234, Mean Platelet Volume 10.0, Neutrophils (%) (Auto) 71, Lymphocytes (%) (Auto) 16 , Monocytes (%) (Auto) 10, Eosinophils (%) (Auto) 3, Basophils (%) (Auto) 0, Neutrophils # (Auto) 5.0, Lymphocytes # (Auto) 1.1, Monocytes # (Auto) 0.7, Eosinophils # (Auto) 0.2, Basophils # (Auto) 0.0 Assessment/Plan Assessment and Plan Recurrent lumbar stenosis with associated neurogenic claudication and radiculopathy improved s/p decompressive surgery AXEL on CPAP Postop constipation improved Postop anemia on replacement Type 2 DM on meds' PAF on meds Chronic Kidney D stage 4 HLP CAD s/p stent and CABG Plan Continue PT/Ot Discharge tomorrow to home with family F/U with orthospine and PCP (1) STENOSIS Status: Resolved Co-Morbidities that are continuing to impact the rehab process: (include details ) JACQUES GALLO MD Sep 01, 2017 08:20
[2017-09-01 08:39] LABS: ALBUMIN 2.8 GM/DL (3.2-4.5); BILIRUBIN,TOTAL 0.5 MG/DL (0.1-1.0); CALCIUM 8.8 MG/DL (8.5-10.1); CREATININE SERUM 1.63 MG/DL (0.60-1.30); POTASSIUM 4.7 MMOL/L (3.6-5.0); TOTAL PROTEIN 5.2 GM/DL (6.4-8.2)
--- NOTE | 2017-09-01 09:14 | Progress Note-Urology ---
Progress Note-Urology Progress Notes/Assess & Plan Progress/Assessment & Plan HOME TOMORROW. APPOINTMENT IN 4 WEEKS Final Diagnosis URINE RETENTION (RESOLVED) YOLETTE CARY MD Sep 01, 2017 9:14 am
--- NOTE | 2017-09-01 10:58 | Progress Note-Hospitalist ---
Subjective HPI/CC On Admission Date Seen by Provider: Sep 01, 2017 Time Seen by Provider: 10:30 Subjective/Events-last exam Patient doing very well Feels better after additional Lasix was given the day before at 1500 Bradycardia go home tomorrow Bowels are moving Voiding well Johnna started Review of Systems General: Malaise Objective Exam Vital Signs Vital Signs Date Time Temp Pulse Resp B/P (MAP) Pulse Ox O2 Delivery O2 Flow Rate FiO2 09/02/17 10:35 76 18 146/63 97 Room Air 09/02/17 05:05 98.1 09/01/17 06:38 2.00 Capillary Refill : General Appearance: No Apparent Distress, WD/WN, Chronically ill Cardiovascular: No Edema, No Gallop, No JVD, No Murmur, Normal Peripheral Pulses, Irregularly Irregular Gastrointestinal: Normal Bowel Sounds, No Organomegaly, No Pulsatile Mass, Non Tender, Soft Neurologic/Psychiatric: Alert, Oriented x3, No Motor/Sensory Deficits, Normal Mood/Affect Results/Procedures Lab Patient resulted labs reviewed. Assessment/Plan Assessment and Plan Assess & Plan/Chief Complaint Assessment: Severe debility following lumbar spine surgery due to stenosis Status post urinary retention requiring Swanson catheter administration now discontinued appreciate urology management Postop ileus gradually improving Chronic renal sufficiency usual creatinine is 1.81.9 and was 1.6 today CAD previous bypass surgery Obstructive sleep apnea Postop anemia Fluid retention Plan: Monitor closely Appreciate urology and general surgery evaluation Continue nebulizer treatments Lasix extra dose again today Diagnosis/Problems Diagnosis/Problems (1) STENOSIS Status: Resolved (2) Ileus Status: Resolved (3) Urinary retention Status: Resolved (4) Delirium Status: Resolved (5) Volume overload Status: Resolved (6) Corneal abrasion, left Status: Resolved (7) AXEL on CPAP Status: Chronic (8) History of CVA (cerebrovascular accident) Status: Chronic (9) CRI (chronic renal insufficiency) Status: Chronic Qualifiers: Chronic kidney disease stage: stage 3 (moderate) Qualified Codes: N18.3 - Chronic kidney disease, stage 3 (moderate) (10) CAD (coronary artery disease), [place] coronary artery Status: Chronic Qualifiers: [place] vs. transplanted heart: [place] heart Associated angina: without angina Qualified Codes: I25.10 - Atherosclerotic heart disease of [place] coronary artery without angina pectoris (11) Hyperlipemia Status: Chronic (12) Anemia Status: Chronic Qualifiers: Anemia type: iron deficiency Iron deficiency anemia type: unspecified iron deficiency Qualified Codes: D50.9 - Iron deficiency anemia, unspecified (13) Diabetes mellitus Status: Chronic Qualifiers: Diabetes mellitus type: type 2 Diabetes mellitus long-term insulin use: with long-term use Diabetes mellitus complication status: with circulatory complication Diabetes mellitus complication detail: with other circulatory complications Qualified Codes: E11.59 - Type 2 diabetes mellitus with other circulatory complications; Z79.4 - termite treater (current) use of insulin (14) Atrial fibrillation Status: Chronic Qualifiers: Atrial fibrillation type: paroxysmal Qualified Codes: I48.0 - Paroxysmal atrial fibrillation (15) Edema Status: Acute Qualifiers: Edema type: localized Qualified Codes: R60.0 - Localized edema Clinical Quality Measures DVT/VTE Risk/Contraindication: Risk Factor Score Per Nursin RFS Level Per Nursing on Admit: 4+=Very High HECTOR MORAN DO Sep 01, 2017 10:58
--- NOTE | 2017-09-01 11:46 | Occupational Ther Daily Note ---
OT Current Status-Daily Note Subjective Pt seen in room, up in bed, agreeable to OT. Looking forward to going home tomorrow. No pain mentioned. Appearance Alert, cooperative Mental Status/Objective Functional [place] Measure 0=Not Assessed/NA 4=Minimal Assistance 1=Total Assistance 5=Supervision or Setup 2=Maximal Assistance 6=Modified [place] 3=Moderate Assistance 7=Complete [place] ADL-Treatment Pt was able to get up to EOB from supine. Dressing on back and IV site covered, pt put brace on. Walked to bathroom with FWW and got on/off toilet without help , using grab bar. Help needed to get pants down on L side but he was able to manage hygiene, using toilet tongs. Cue to not stand to step out of pants, although no LOB observed. Walked to shower and got in/out of shower without help. Washed and dried all parts himself, using shower bench, grab bars, hand held shower and long handled sponge. Pt retrieved clean clothes with FWW, using walker bor balance and to carry them. Doffed and donned t shirt without help. Used dressing stick to take slipper socks off but needed setup to don TEDs and help to put socks back on. Dressing stick to get pants on and help to pull pants up on L side, due to L hand weakness from old CVA. Pt was able to take back brace off and put it back on. Pt left up in recliner, all needs met. Functional [place] Measure 0=Not Assessed/NA 4=Minimal Assistance 1=Total Assistance 5=Supervision or Setup 2=Maximal Assistance 6=Modified [place] 3=Moderate Assistance 7=Complete IndependenceIRFPAI Quality Coding Scale 6 Independent with activity with or without an assistive device 5 Patient requires set up or clean up by helper. Patient completes activity by themselves 4 Supervision or touching assist (CGA). [place] provide cues , steadying assist 3 The helper provides less than half the effort to complete the activity 2 The helper provides more than half the effort to complete the activity 1 Dependent. The helper does all the effort to complete an activity 7 Patient refused to complete or attempt activity 9 The patient did not perform the activity before the current illness or injury 88 Not attempted due to Medical conditions or safety concerns Eating (FIM): 7 (Pt is able to open packages, cut food, feed himself without AD ) Eating (QC): 6 Grooming (FIM): 6 (Stood at sink to brush teeth. Washed face and hands in shower. FWW for balance) Oral Hygiene (QC): 6 Bathing (FIM): 6 (Turned water on and off, retrieved towl from bar. Washed and dried all parts, sitting on shower bench, with grab bars, hand held shower , long handled sponge) Shower/Bathe Self (QC): 6 Upper Body (FIM): 6 (Retrieved clean clothes, carrying them on FWW. Doffed and donned shirt) Upper Body Dressing (QC): 6 Lower Body Dressing (FIM): 3 (Help to put TEDS on (setup) and slispper socks but took socks off with dressing stick. Difficulty using sock aid with one hand. Used stick to doff and don underwear and shorts but a little help needed to get pants pulled up on L side) Lower Body Dressing (QC): 3 On/Off Footwear (QC): 3 (Able to get socks off but help to don them) Toileting (FIM): 3 (Help to get pants pushed down on L side. Able to manage hygiene, using toilet tongs. Tall toilet, grab bar) Toileting Hygiene (QC): 3 Toilet/Commode Transfer (FIM): 6 (On/off tall toilet, grab bar, FWW) Toilet Transfer (QC): 6 Shower Transfer(FIM): 6 (In/out of shower stall and on/off shower bench, grab bar, FWW) Education OT Patient Education: Progress toward Goal/Update tx plan, Purpose of tx/ functional activities, Safety issues Teaching Recipient: Patient Teaching Methods: Discussion Response to Teaching: Verbalize Understanding, Return Demonstration OT Short Term Goals Short Term Goals Time Frame: Sep 04, 2017 Lower Body Dressing(FIM): 5 Toilet/Commode Transfer(FIM): 5 Additional Short Term Goals: 1-Demonstrate ADL Tasks, 2-Verbalize Understanding , 3-ImproveStrength/[place]arc[place] 1=Demonstrate adherence to instructed precautions during ADL tasks. 2=Patient will verbalize/demonstrate understanding of assistive devices/ modifications for ADL. 3=Patient will improve strength/tolerance for activity to enable patient to perform ADL's. OT Penitentiary Goals Penitentiary Goals Time Frame: Sep 08, 2017 Eating (FIM): 7 (met --18) Eating (QC): 6 (met --18) Groomin (met -29-18) Oral Hygiene (QC): 6 (met -29-18) Bathing(FIM): 6 (met --18) Shower/Bathe Self (QC): 6 (met --18) Upper Body Dressing(FIM): 6 (met -29-18) Upper Body Dressing (QC): 6 (met -29-18) Lower Body Dressing(FIM): 6 (not met --18) Lower Body Dressing (QC): 6 (not met --18) On/Off Footwear (QC): 6 (not met --18) Toileting(FIM): 6 (not met 09-01-18) Toileting Hygiene (QC): 6 (not met 09-01-18) Toilet/Commode Transfer(FIM): 6 (met --18) Toilet/Commode Transfer (QC): 6 (met 09-01-18) Shower Transfer(FIM): 6 (met 09-01-18) Additional Goals: 1-Demonstrate ADL Tasks, 2-Verbalize Understanding, 3- ImproveStrength/Narciso 1=Demonstrate adherence to instructed precautions during ADL tasks. 2=Patient will verbalize/demonstrate understanding of assistive devices/ modifications for ADL. 3=Patient will improve strength/tolerance for activity to enable patient to perform ADL's. OT Education/Plan Problem List/Assessment Pt would benefit from skilled OT to increase his independence in basic self care to allow him to safely return home with family Discharge Recommendations Plan/Recommendations: Continue POC (anticipate dc tomorrow) Treatment Plan/Plan of Care Patient would benefit from OT for education, treatment and training to promote independence in ADL's, mobility, safety and/or upper extremity function for ADL' s. Plan of Care: ADL Retraining, Functional Mobility, Group Exercise/Act as Ind ( education, exercise, funct activity, activity tolerance, socialization), UE Funct Exercise/Act, UE Neuromus Re-Ed/Coord Treatment Duration: Sep 08, 2017 Frequency: At least 5 of 7 days/Wk (IRF) Estimated Hrs Per Day: 1.5 hours per day Agreement: Yes Rehab Potential: Good Time/GCodes Start Time: 08:00 Stop Time: 09:00 Total Time Billed (hr/min): 60 Billed Treatment Time visit, 60 minutes GRANT LOPEZ OT Sep 01, 2017 11:46
--- NOTE | 2017-09-01 11:53 | Physical Therapy Daily Note ---
PT Daily Note-Current Subjective Pt. states he slept very well last night. the Rx the OT gave him on his shoulder (hx of CVA affected) really gave him alot of relief. Pain Numeric Pain Scale: 0-No Pain Mental Status Patient Orientation: Normal For Age Attachments: Other-See Comments (back brace) donns and doffs brace for pt. Transfers Functional [place] Measure 0=Not Assessed/NA 4=Minimal Assistance 1=Total Assistance 5=Supervision or Setup 2=Maximal Assistance 6=Modified [place] 3=Moderate Assistance 7=Complete IndependenceIRFPAI Quality Coding Scale 6 Independent with activity with or without an assistive device 5 Patient requires set up or clean up by helper. Patient completes activity by themselves 4 Supervision or touching assist (CGA). [place] provide cues , steadying assist 3 The helper provides less than half the effort to complete the activity 2 The helper provides more than half the effort to complete the activity 1 Dependent. The helper does all the effort to complete an activity 7 Patient refused to complete or attempt activity 9 The patient did not perform the activity before the current illness or injury 88 Not attempted due to Medical conditions or safety concerns Transfers (B, C, W/C) (FIM): 6 Scootin Rollin Roll Left to Right (QC): 5 Supine to/from Sit: 6 Sit to/from Stand: 6 Sit to Lying (QC): 5 Sit to Stand (QC): 5 Chair/Quk-jo-Mdllu Xfer(QC): 5 Bed to/from Chair: 6 Car Transfer (QC): 5 Weight Bearing Right Lower Extremity: Right Weight Bearing/Tolerated Left Lower Extremity: Left Weight Bearing/Tolerated Gait Training Does the Patient Walk?: Yes Gait (FIM): 6 Distance (FIM): 3=150 ft Walk 10 feet (QC): 5 Walk 50 ft with 2 Turns(QC): 5 Walk 150 ft (QC): 5 Walking 10ft/uneven surface-QC: 5 Gait Level of Assist: 6 Gait Persons Needed: 0 Gait Assistive Device: FWW Wheelchair Training Does the Pt Use a Wheelchair?: No Stair Training Stair Training: Handrails/: 2 handrails Stairs (FIM): 5 #of Steps: 4 1 Step (curb) (QC): 5 4 Steps (QC): 5 Stairs: Pattern: Reciprocal Level of Assist: 5 Balance Special Test Comments unsafe to trial bending over Treatments bed cane device was placed in [facility] bed that is in the room pt just moved to ( indep living apt) Pt. like sit and would like one at home. This was forwarded to SW. new walker present and adjusted, tennis balls applied Assessment Current Status: Good Progress PT Short Term Goals Short Term Goals Time Frame: Sep 01, 2017 Gait (FIM): 5 (met) PT Senior Care Goals Senior Care Goals PT Senior Care Goals Time Frame: Sep 06, 2017 Transfers (B,C,W/C) (FIM): 6 Sit to Lying (QC): 6 Lying-Sitting on Side/Bed(QC): 6 Sit to Stand (QC): 6 Rollin Roll Left to Right (QC): 6 Chair/Prg-gb-Qhpsk Xfer(QC): 6 Car Transfer (QC): 6 Does the Patient Walk: Yes Gait (FIM): 6 Gait distance (FIM): 3=150 ft Walk 10 feet (QC): 6 Walk 10ft-Uneven Surface(QC): 6 Walk 50ft with 2 Turns (QC): 6 Walk 150 ft (QC): 6 Gait Assistive Device: FWW Does the Pt use WC or Scooter?: No Stairs (FIM): 5 # of Steps: 4 1 Step (curb) (QC): 6 4 Steps (QC): 6 12 Steps (QC): 88 Picking up an Object (QC): 88 PT Plan Treatment/Plan Treatment Plan: Continue Plan of Care Treatment Plan: Bed Mobility, Education, Functional Activity Narciso, Functional Strength, Group Therapy, Gait, Safety, Therapeutic Exercise, Transfers Treatment Duration: Sep 06, 2017 Frequency: At least 5 of 7 days/Wk (IRF) Estimated Hrs Per Day: 1.5 hours per day Patient and/or Family Agrees t: Yes Safety Risks/Education Patient Education: Transfer Techniques, Steps, Reviewed Precautions, Correct Positioning, Disease Process, Safety Issues Teaching Recipient: Patient, Family, Significant Other Teaching Methods: Discussion Response to Teaching: Verbalize Understanding, Return Demonstration, Reinforcement Needed Time/GCodes Time In: 1100 Time Out: 1200 Total Billed Treatment Time: 60 Total Billed Treatment 1,GT25m,FA35m G Codes Necessary: No MITCHELL ARAMBULA ELECTRIC APPLIANCE INSTALLER Sep 01, 2017 11:53
--- NOTE | 2017-09-01 14:36 | Therapy Group Daily Note ---
Therapy Daily Group Note Exercises Fine Motor, UE Exercise Other/Notes Pt ambulated using FWW to OT/PT group in [facility]. Group consisted of introductions (name, place living, fun story), socialization, dynamic sitting, fine motor and B UE activities. Pt introduced self appropriately and actively listened to peers. Pt contributed to conversations and began discussions with peers. Pt demonstrated good fine motor skills during activity by isolating thin object, manipulating with digits then placing in designated spot with UE extended against gravity. Pt was able to adhere to back precautions while strengthening core with dynamic sitting activities. After therapy, pt sitting in recliner with call light/phone in reach. All needs met in room. Start Time: 13:00 Stop Time: 14:00 Total Billed Treatment Time: 60 Total Billed Treatment 1-GRP BRAYAN BERGER Sep 01, 2017 14:36
--- NOTE | 2017-09-01 14:42 | Therapy Group Daily Note ---
Therapy Daily Group Note Other/Notes Patient participated in group therapy in the common area of rehab. Each patient ambulated or was transported to the common area of rehab and seated at tables in groups. Each patient had to introduce themselves and state where they were from. Each patient then participated in group activities and games that involved critical thinking, spatial awareness, UE ROM, memory, and math. Afterwards, each patient ambulated or was transported back to their room to chair or bed with nurse call, phone, tray, all needs met. Start Time: 13:00 Stop Time: 14:00 Total Billed Treatment Time: 60 Total Billed Treatment 1 visit GRP 60' LIMA BLANKENSHIP PT Sep 01, 2017 14:42
[2017-09-01] MEDS ORDERED: HYDR-34 PO (14:48)
[2017-09-01] MEDS ORDERED: FUROSEMIDE 40 MG (LASIX) TAB PO NR (15:00)
[2017-09-01 16:27] VITALS: BP 154/70
[2017-09-01] MEDS: eZETimibe 10 MG (ZETIA) TABLET PO SCH (21:07)
[2017-09-01] MEDS: FENOFIBRATE 134 MG (LOFIBRA) CAPSULE PO SCH (21:07)
[2017-09-01] MEDS: doxAzosin 4 MG (CARDURA) TAB PO SCH (21:07)
[2017-09-01] MEDS: ATORVASTATIN 80 MG (LIPITOR) TABLET PO SCH (21:07)
--- NOTE | 2017-09-01 22:30 | Progress Note ---
Subjective Date Seen by Provider: Sep 01, 2017 Time Seen by Provider: 16:11 Subjective/Events-last exam passing flatus and bm. slightly less distention. tolerating diet. not having any nausea or emesis. denies fever sweats chills shortness of breath or chest pain. Objective Exam Vital Signs Date Time Temp Pulse Resp B/P (MAP) Pulse Ox O2 Delivery O2 Flow Rate FiO2 09/01/17 21:00 Room Air 09/01/17 18:37 95 Room Air 09/01/17 16:27 96.4 56 16 154/70 (98) 96 Room Air 09/01/17 12:50 93 Room Air 09/01/17 09:00 Room Air 09/01/17 07:00 74 09/01/17 06:38 95 Room Air 2.00 09/01/17 05:14 97.1 72 19 121/67 (85) 95 Room Air 09/01/17 01:00 67 I & O 09/01/17 07:00 Intake Total 1600 ml Balance 1600 ml Capillary Refill : General Appearance: No Apparent Distress, WD/WN, Chronically ill, Other ( improved) HEENT: PERRL/EOMI Respiratory: Lungs Clear, Normal Breath Sounds Cardiovascular: Regular Rate, Rhythm Gastrointestinal: distended (no signficant tenderness, distention slightly less ) Extremity: Pedal Edema Neurologic/Psychiatric: Alert, Oriented x3, No Motor/Sensory Deficits, Normal Mood/Affect Skin: Warm/Dry Lymphatic: No Adenopathy Results Lab Laboratory Tests 09/01/17 05:25: Glucometer 121H 09/01/17 08:00: White Blood Count 7.0, Red Blood Count 2.38L, Hemoglobin 8.0L, Hematocrit 25L, Mean Corpuscular Volume 104H, Mean Corpuscular Hemoglobin 34, Mean Corpuscular Hemoglobin Concent 32, Red Cell Distribution Width 13.0, Platelet Count 234, Mean Platelet Volume 10.0, Neutrophils (%) (Auto) 71, Lymphocytes (%) (Auto) 16 , Monocytes (%) (Auto) 10, Eosinophils (%) (Auto) 3, Basophils (%) (Auto) 0, Neutrophils # (Auto) 5.0, Lymphocytes # (Auto) 1.1, Monocytes # (Auto) 0.7, Eosinophils # (Auto) 0.2, Basophils # (Auto) 0.0, Sodium Level 136, Potassium Level 4.7, Chloride Level 107, Carbon Dioxide Level 22, Anion Gap 7, Blood Urea Nitrogen 42H, Creatinine 1.63H, Estimat Glomerular Filtration Rate 43, BUN/ Creatinine Ratio 26, Glucose Level 163H, Calcium Level 8.8, Total Bilirubin 0.5 , Aspartate Amino Transf (AST/SGOT) 24, Alanine Aminotransferase (ALT/SGPT) 21, Alkaline Phosphatase 25L, Total Protein 5.2L, Albumin 2.8L 09/01/17 10:59: Glucometer 149H 09/01/17 16:16: Glucometer 173H 09/01/17 20:26: Glucometer 231H Assessment/Plan Assessment/Plan Assessment/Plan Lumbar stenosis with radiculopathy- status post L3 to 5 TLIF/PSF CAD Acute on chronic renal insufficiency Acute on chronic anemia Urinary retention Post operative ileus bowels functioning, distention slightly less but slowly improving diet as tolerates. planning dc tomorrow okay to dc home from surgical standpoint f/u 1 week, any issues be seen at that time. Clinical Quality Measures DVT/VTE Risk/Contraindication: Risk Factor Score Per Nursin RFS Level Per Nursing on Admit: 4+=Very High ELVIA ADAMS DO Sep 01, 2017 22:30
[2017-09-02 05:05] VITALS: BP 146/63
[2017-09-02] MEDS: PANTOPRAZOLE 40 MG (PROTONIX) TAB PO SCH (06:43)
[2017-09-02] MEDS: FERROUS SULF 325 MG (IRON) TAB PO SCH (06:43)
[2017-09-02] MEDS: OMEGA 3 (FISH OIL) 1000 MG CAP PO SCH (06:43)
[2017-09-02] MEDS: VITAMIN D3 1,000 UNITS (CHOLECALCIFEROL) TABLET PO SCH (06:43)
[2017-09-02] MEDS: inSUlin ASPART (NovoLOG) 1 UNIT/0.01 ML (CHARGE PER UNIT) SC SCH (06:43)
[2017-09-02] MEDS: MULTIVIT W/MINERALS TAB (THERAGRAN M) PO SCH (06:44)
[2017-09-02] MEDS: ISOSORBIDE MONONITRATE 60 MG (IMDUR) TAB PO SCH (06:44)
[2017-09-02] MEDS: RT-ALBUTEROL SULF 2.5 MG/3 ML PRE-MIX VIAL INH SCH (07:11)
--- NOTE | 2017-09-02 07:57 | PM & R (SOAP) Progress Note ---
Subjective This was a face to face visit with the patient. Date Seen by Provider: Sep 02, 2017 Time Seen by Provider: 07:30 Subjective/Events-last exam Patient was seen in his room this AM Appreciate DR Dowell and Zackary note and orders all set for discharge today Moved to apartment in anticipation of discharge today Review of Systems Cardiovascular: Edema Objective Physician Exam Last Set of Vital Signs Vital Signs Date Time Temp Pulse Resp B/P (MAP) Pulse Ox O2 Delivery O2 Flow Rate FiO2 09/02/17 07:11 94 Room Air 09/02/17 05:05 98.1 76 18 146/63 (90) 09/01/17 06:38 2.00 Capillary Refill : I&O Intake and Output 09/02/17 00:00 Intake Total 1530 ml Balance 1530 ml Intake Oral 1530 ml # Voids 6 # Bowel Movements 5 General: Alert, Oriented X3, Cooperative, No Acute Distress HEENT: Atraumatic, PERRLA, EOMI, Mucous Memb Moist/[place] Neck: Supple, No JVD Lungs: Clear to Auscultation Heart: Regular Rate Abdomen: Normal Bowel Sounds, Soft, No Tenderness, Other (distended) Extremities: No Edema, Other (trace edema) Neuro: Other (Strength 4-/5 lower limbs 4/5 both upper limbs) Results Lab Data Laboratory Tests 08/30/17 10:54: Glucometer 220H 08/30/17 15:31: Glucometer 168H 08/30/17 20:19: Glucometer 195H 08/31/17 05:18: Glucometer 121H 08/31/17 11:07: Glucometer 167H 08/31/17 16:10: Glucometer 184H 08/31/17 20:16: Glucometer 143H 09/01/17 05:25: Glucometer 121H 09/01/17 08:00: White Blood Count 7.0, Red Blood Count 2.38L, Hemoglobin 8.0L, Hematocrit 25L, Mean Corpuscular Volume 104H, Mean Corpuscular Hemoglobin 34, Mean Corpuscular Hemoglobin Concent 32, Red Cell Distribution Width 13.0, Platelet Count 234, Mean Platelet Volume 10.0, Neutrophils (%) (Auto) 71, Lymphocytes (%) (Auto) 16 , Monocytes (%) (Auto) 10, Eosinophils (%) (Auto) 3, Basophils (%) (Auto) 0, Neutrophils # (Auto) 5.0, Lymphocytes # (Auto) 1.1, Monocytes # (Auto) 0.7, Eosinophils # (Auto) 0.2, Basophils # (Auto) 0.0, Sodium Level 136, Potassium Level 4.7, Chloride Level 107, Carbon Dioxide Level 22, Anion Gap 7, Blood Urea Nitrogen 42H, Creatinine 1.63H, Estimat Glomerular Filtration Rate 43, BUN/ Creatinine Ratio 26, Glucose Level 163H, Calcium Level 8.8, Total Bilirubin 0.5 , Aspartate Amino Transf (AST/SGOT) 24, Alanine Aminotransferase (ALT/SGPT) 21, Alkaline Phosphatase 25L, Total Protein 5.2L, Albumin 2.8L 09/01/17 10:59: Glucometer 149H 09/01/17 16:16: Glucometer 173H 09/01/17 20:26: Glucometer 231H 09/02/17 05:32: Glucometer 196H Assessment/Plan Assessment and Plan Discharge today to home today with and HHC F/U with DR Rodriguez and PCP and spine surgeon see orders Current meds reviewed (1) STENOSIS Status: Resolved Co-Morbidities that are continuing to impact the rehab process: (include details ) JACQUES GALLO MD Sep 02, 2017 07:57
[2017-09-02] MEDS: FUROSEMIDE 40 MG (LASIX) TAB PO SCH (08:28)
[2017-09-02] MEDS: SPIRONOLACTONE 25 MG (ALDACTONE) TAB PO SCH (08:28)
[2017-09-02] MEDS: APIXABAN 5 MG (ELIQUIS) TABLET PO SCH (08:28)
[2017-09-02] MEDS: inSUlin DETERMIR 1 UNIT/0.01 ML (LEVEMIR) CHARGE PER UNIT SQ SCH (08:28)
[2017-09-02] MEDS: CARVEDILOL 6.25 MG (COREG) TAB PO SCH (08:29)
[2017-09-02] MEDS: ASPIRIN 81 MG CHEW (CHILDREN'S ASA) PO SCH (08:29)
[2017-09-02] MEDS: SENNA W/DOCUSATE (SENOKOT S) TABLET PO SCH (08:31)
[2017-09-02] MEDS: POLYETHYLENE GLYCOL 17 GM (MIRALAX) PACK PO SCH (08:31)
[2017-09-02] MEDS: HYDROcodone/APAP 7.5 MG/325 MG (LORTAB, LORCET PLUS) TABLET PO PRN (10:14)
[2017-09-02 10:35] VITALS: BP 146/63
--- NOTE | 2017-09-04 10:12 | Therapy Team Discharge Summary ---
Therapy Discharge Summary Discharge Recommendations Date of Discharge Sep 02, 2017 at 10:40 Physical Therapy This patient was seen on ARU post L3-5 TLIF, PSDF due to lumbar stenosis and significant back pain. Prior to the surgery , he was indep with all mobility. Upon admission to this unit, he was mod assist with transfers, amb 100 ft with CGA with FWW, and could traverse 1 step with CGA. Treatment has consisted of functional strength, transfer training, gait, safety, balance, and activity tolerance. He did make good progress and achieved all goals to a satisfactory level. He is grossly mod indep with all mobility at id. He is to discharge home with his . [facility] PT. 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) PT Sap Abap Developer Goals [facility] Goals PT Sap Abap Developer Goals Time Frame: Sep 06, 2017 Transfers (B,C,W/C) (FIM): 6 (met) Roll Left to Right (QC): 6 (met) Sit to Lying (QC): 6 (met) Lying-Sitting on Side/Bed(QC): 6 (met) Sit to Stand (QC): 6 (met) Chair/Fex-yq-Wegli Xfer(QC): 6 (met) Car Transfer (QC): 6 (unmet; scored a 5) Does the Patient Walk: Yes Gait (FIM): 6 (met) Gait distance (FIM): 3=150 ft Walk 10 feet (QC): 6 (met) Walk 10ft-Uneven Surface(QC): 6 (met) Walk 50ft with 2 Turns (QC): 6 (met) Walk 150 ft (QC): 6 (met) Gait Assistive Device: FWW Does the Pt use WC or Scooter?: No Stairs (FIM): 5 (met) # of Steps: 4 1 Step (curb) (QC): 6 4 Steps (QC): 6 12 Steps (QC): 88 Picking up an Object (QC): 88 All goals met to a satisfactory level. OT [facility] Goals Sap Abap Developer Goals Time Frame: Sep 08, 2017 Eating (FIM): 7 (met 09-01-18) Eating (QC): 6 (met --18) Oral Hygiene (QC): 6 (met 09-01-18) Grooming(FIM): 6 (met --18) Bathing(FIM): 6 (met 09-01-18) Shower/Bathe Self (QC): 6 (met 09-01-) Upper Body Dressing(FIM): 6 (met 09-01-18) Upper Body Dressing (QC): 6 (met 09-01-18) Lower Body Dressing(FIM): 6 (not met 09-01-18) Lower Body Dressing (QC): 6 (not met 09-01-17) On/Off Footwear (QC): 6 (not met 09-01-) Toileting(FIM): 6 (not met 09-01-17) Toileting Hygiene (QC): 6 (not met 09-01-17) Toilet/Commode Transfer(FIM): 6 (met 09-01-17) Toilet/Commode Transfer (QC): 6 (met 09-01-17) Shower Transfer(FIM): 6 (met 09-01-17) Additional Goals: 1-Demonstrate ADL Tasks, 2-Verbalize Understanding, 3- ImproveStrength/Narciso 1=Demonstrate adherence to instructed precautions during ADL tasks. 2=Patient will verbalize/demonstrate understanding of assistive devices/ modifications for ADL. 3=Patient will improve strength/tolerance for activity to enable patient to perform ADL's. BRAYAN STAFFORD PT Sep 04, 2017 10:12
--- NOTE | 2017-09-04 13:30 | Therapy Team Discharge Summary ---
Therapy Discharge Summary Discharge Recommendations Date of Discharge Sep 02, 2017 at 10:40 Therapy D/C Recommendations: Home w/ Family Support Occupational Therapy Pt was seen for skilled OT to increase his independence iwth basic self care after back surgery. Recovery was complicated by residual effects of CVA 11 years ago, with decr functional use L UE. On admission he needed setup for eating and upper body dressing, CGA for grooming and toilet transfer, mod assist bathing, lower body dressing, and max assist toileting. By discharge he had progressed to independent with eating, modified independent with bathing, grooming, upper body dressing, toilet and shower transfers. He needed mod assist lower body dressing and toileting with a little help to pull pants up over L hip and get socks on. He was able to get back brace off and on by himself. He used shower bench, grab bars, hand held shower, long handled sponge , dressing stick, sock aid, toilet tongs, BSC over toilet. pt discharged to home with his . No continued OT needs identified. See tx plan for goals met. DC OT. 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) PT Instrumentation Designer Goals Instrumentation Designer Goals PT [facility] Goals Time Frame: Sep 06, 2017 Transfers (B,C,W/C) (FIM): 6 (met) Roll Left to Right (QC): 6 (met) Sit to Lying (QC): 6 (met) Lying-Sitting on Side/Bed(QC): 6 (met) Sit to Stand (QC): 6 (met) Chair/Qlw-vz-Bgnex Xfer(QC): 6 (met) Car Transfer (QC): 6 (unmet; scored a 5) Does the Patient Walk: Yes Gait (FIM): 6 (met) Gait distance (FIM): 3=150 ft Walk 10 feet (QC): 6 (met) Walk 10ft-Uneven Surface(QC): 6 (met) Walk 50ft with 2 Turns (QC): 6 (met) Walk 150 ft (QC): 6 (met) Gait Assistive Device: FWW Does the Pt use WC or Scooter?: No Stairs (FIM): 5 (met) # of Steps: 4 1 Step (curb) (QC): 6 4 Steps (QC): 6 12 Steps (QC): 88 Picking up an Object (QC): 88 OT Instrumentation Designer Goals [facility] Goals Time Frame: Sep 08, 2017 Eating (FIM): 7 (met 6-29-18) Eating (QC): 6 (met 6-29-18) Oral Hygiene (QC): 6 (met 6-29-18) Grooming(FIM): 6 (met 6-29-18) Bathing(FIM): 6 (met 6--18) Shower/Bathe Self (QC): 6 (met 6-29-18) Upper Body Dressing(FIM): 6 (met 6-29-18) Upper Body Dressing (QC): 6 (met 6-29-18) Lower Body Dressing(FIM): 6 (not met 6-29-18) Lower Body Dressing (QC): 6 (not met 6-29-18) On/Off Footwear (QC): 6 (not met 6-29-18) Toileting(FIM): 6 (not met 6-29-18) Toileting Hygiene (QC): 6 (not met 6-29-18) Toilet/Commode Transfer(FIM): 6 (met 6-29-18) Toilet/Commode Transfer (QC): 6 (met 6-29-18) Shower Transfer(FIM): 6 (met 6-29-18) Additional Goals: 1-Demonstrate ADL Tasks, 2-Verbalize Understanding, 3- ImproveStrength/Narciso 1=Demonstrate adherence to instructed precautions during ADL tasks. 2=Patient will verbalize/demonstrate understanding of assistive devices/ modifications for ADL. 3=Patient will improve strength/tolerance for activity to enable patient to perform ADL's. GRANT FARIAS OT Sep 04, 2017 13:30
--- NOTE | 2017-09-13 01:16 | DISCHARGE SUMMARY ---
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 Heredia. Postoperatively, the patient had difficulty with sepsis, metabolic acidosis, agitation and confusion, urinary retention and postop ileus. The patient was followed by Dr. Cohn, Dr. Guallpa, Dr. Forbes and Dr. Rodriguez. Medications were adjusted. His Eliquis was resumed postoperatively. He is referred to inpatient rehabilitation unit for ongoing therapies. PAST MEDICAL HISTORY: AXEL, BPH, chronic anemia probably due to chronic kidney disease, type 2 diabetes mellitus, paroxysmal atrial fibrillation, coronary artery disease with history of CABG in the late at [facility] and cardiac stents as well with Dr. Dos Santos approximately three years ago. He has had prior lumbar spine surgery with Dr. Polo at [facility] and prior cervical spine surgery with Dr. Heredia. MEDICAL COURSE: The patient was followed by Dr. Gallo and hospitalist service while on rehab unit as well as Dr. Rodriguez. The patient continued with some nausea, emesis, postop ileus. The patient was placed on bowel rest with IV fluids by Dr. Rodriguez, then the patient started on clear liquids and gradually advanced with resolution of his symptoms. Follow up abdominal x-ray showed resolution of gaseous distention. He was afebrile during his stay. Blood pressure was 146/63 on 09/02/2017. Pulse 76, respirations 18, O2 sat 97% on room air. His incision sites were healing well. CBC on 09/01/2017 showed H and H 8.0/25, platelet count 234,000, WBC 7.0. Glucometer readings from 09/01/2017 and 09/02/2017 varied between 149 and 231. Chemistry on 09/01/2017 showed BUN 42, creatinine 1.63, blood glucose 163, alkaline phosphatase 25 low, total protein low at 5.2, albumin low 2.8. REHABILITATION COURSE: The patient was assessed by speech therapy upon admission, found to be cognitively intact. They signed off. The patient was followed by Dr. Guallpa. The patient was continent of bowel and bladder, voiding well upon discharge. PT NOTES: Prior to surgery, he was independent with all mobility, but having pain and difficulty as per above. Upon admission to rehab, he was mod assist for transfers, could ambulate 100 feet with contact guard with front wheel walker and could traverse one step with contact guard. He made good progress and essentially is modified independent with all mobility at discharge. OT NOTES: Upon admission, he required set up for eating and upper body dressing, contact guard for grooming and toilet transfers, mod assist for bathing and lower body dressing, and max assist for toileting. By discharge, he had progressed to independent with eating, modified independent with bathing, grooming, upper body dressing, toilet and shower transfers. He was able to get his back brace off and on by himself. DISCHARGE INSTRUCTIONS: A prescription for wheeled walker was provided. Continue current diet. Follow up with urology, Dr. Heredia and PCP and Dr. Rodriguez general surgery. DISCHARGE MEDICATIONS: Hydrocodone/APAP 7.5 one tablet p.o. q.4 hours p.r.n. moderate pain, Eliquis 5 mg p.o. b.i.d., ASA 81 mg p.o. daily, Lipitor 80 mg p.o. each day at bedtime. Coreg 6.25 mg p.o. b.i.d., vitamin D3 2000 units p.o. daily, doxazosin 8 mg p.o. each day at bedtime, Zetia 10 mg p.o. each day at bedtime, fenofibrate 160 mg p.o. each day at bedtime, ferrous sulfate 324 mg p.o. b.i.d., furosemide 40 mg p.o. daily and 40 mg at bedtime p.r.n. swelling. Levemir insulin 30 units subQ b.i.d. Accu-Cheks as per home regimen, insulin KwikPen 20 units subcu t.i.d. with meals, isosorbide extended release 120 mg p.o. daily, multivitamins with minerals one tablet p.o. daily, nitroglycerin 0.4 mg sublingual p.r.n. chest pain, fish oil 1000 mg p.o. b.i.d., Protonix 40 mg p.o. daily, spironolactone 50 mg p.o. daily. DISCHARGE DIAGNOSES: 1. Rehabilitation ambulatory dysfunction status post surgery for spinal stenosis, lumbar region associated with neurogenic claudication and radiculopathy. 08/25/2017, specifically, L3-L4 transforaminal lumbar interbody fusion and posterior spinal fusion, L4-L5 transforaminal lumbar interbody fusion and posterior spinal fusion, L3-L4 and L4-L5 interbody cage instrumentation without interval fixation and L3-L5 posterior segmental pedicle screw instrumentation and autograft for spine surgery local and allograft for spine surgery morselized. 2. Difficulty walking, improving. 3. Obstructive sleep apnea. 4. Postop ileus, resolved. 5. Chronic kidney disease. 6. Anemia associated with chronic kidney disease. 7. Paroxysmal atrial fibrillation, treated. 8. Diabetes mellitus type 2, controlled with medication with other circulatory complications. 9. Benign prostatic hypertrophy, improved. 10. Obesity. 11. BMI 32 to 32.9. CONDITION AT DISCHARGE: Improved and stable. PROGNOSIS: Rehab prognosis appears good for continued improvement at home, return to independent living. Job ID: [id number] DocumentID: [id number] Dictated Date: 09/12/2017 10:09:13 Intermediate Frame Tender Date: 09/13/2017 01:15:05 Dictated By: JACQUES GALLO MD
== END 2017-09-02 10:40 | disposition home or self-care (01) | DRG 560 ==
PROVIDERS: ADMIT Physical Medicine & Rehabilitation; ATTEND Physical Medicine & Rehabilitation
DX: Z47.89 Encounter for other orthopedic aftercare (principal); Z98.1 Arthrodesis status; R26.2 Difficulty in walking, not elsewhere classified; K91.89 Other postprocedural complications and disorders of digestive system; N18.4 Chronic kidney disease, stage 4 (severe); G47.33 Obstructive sleep apnea (adult) (pediatric); I25.10 Atherosclerotic heart disease of native coronary artery without angina pectoris; I12.9 Hypertensive chronic kidney disease with stage 1 through stage 4 chronic kidney disease, or unspecified chronic kidney disease; I48.0 Paroxysmal atrial fibrillation; E66.9 Obesity, unspecified; E11.59 Type 2 diabetes mellitus with other circulatory complications; D63.1 Anemia in chronic kidney disease; N40.0 Benign prostatic hyperplasia without lower urinary tract symptoms; E78.5 Hyperlipidemia, unspecified; K59.00 Constipation, unspecified; R60.9 Edema, unspecified; Z95.5 Presence of coronary angioplasty implant and graft; Z95.1 Presence of aortocoronary bypass graft; Z86.73 Personal history of transient ischemic attack (TIA), and cerebral infarction without residual deficits; Z79.4 Long term (current) use of insulin; Z68.32 Body mass index [BMI] 32.0-32.9, adult
CPT/HCPCS: 36415; 74019; 80053; 82962; 83735; 84100; 84153; 85025; 94640; 94760

== ENCOUNTER → 2017-09-20 | Outpatient (CLI) | payer MEDICARE ==
[~2017-09-20] MED LIST changes: +ASPI-983 PO; +CARV6.252 PO; +EZET10TA27 PO; +FURO40TA4 PO; +HYDR-34 PO; +INSU100I23 SC; +NITR0.4T42 SL; +PANT40TA3 PO
--- NOTE | 2017-09-20 11:59 | Diagnostic Imaging Report ---
INDICATION: Followup ileus. TIME OF EXAM: 11:41 AM Correlation is made with prior study from 08/30/2017. FINDINGS: The bowel gas pattern has improved since prior study. No significant gaseous distended bowel loops are seen. The small and large bowel loops are normal caliber. No free air or pathologic calcifications are seen. There are postop changes of posterior instrumented fusion in the lower lumbar spine. IMPRESSION: Improved bowel gas pattern since exam from 08/30/2017. No acute feature is detected. Dictated by: Dictated on workstation # [id number]
== END ==
LOC: RAD 11:08
PROVIDERS: ATTEND Internal Medicine
DX: K56.0 Paralytic ileus (principal)
CPT/HCPCS: 74019